=== PATIENT | female | born 1955 | race Caucasian/White ===

== ENCOUNTER 2023-01-20 19:55 | Inpatient (IN) ==
[2023-01-20] MEDS ORDERED: ceFAZolin 330 MG/ML 1 GM VIAL ONE (20:11)
[2023-01-20] MEDS ORDERED: BUPIVACAINE/EPINEPHRINE 0.25% 1:200,000 30 ML VIAL ONE (20:11)
[2023-01-20] MEDS ORDERED: PROMETHAZINE HCL 6.25 MG in SODIUM CHLORIDE 0.9% 50 ML IV PRN (20:13)
[2023-01-20] MEDS ORDERED: ATROPINE SULFATE 0.1 MG/ML 10ML SYR IV PRN (20:13)
[2023-01-20] MEDS ORDERED: HYDROmorphone INJ 2 MG/ML SYR/VIAL IV PRN (20:13)
[2023-01-20] MEDS ORDERED: ONDANSETRON INJ 2 MG/ML 2 ML VIAL IV PRN ×2 (20:13→22:56)
[2023-01-20] MEDS ORDERED: ePHEDrine sulfate 50 MG/ML AMP IV PRN (20:13)
[2023-01-20] MEDS ORDERED: fentaNYL citrate PF 100 MCG/2 ML VIAL ONE ×2 (20:16→21:45)
[2023-01-20] MEDS ORDERED: ONDANSETRON INJ 2 MG/ML 2 ML VIAL ONE ×2 (20:16→21:45)
[2023-01-20] MEDS ORDERED: SUGAMMADEX SODIUM 200 MG/2 ML VIAL IV ONE (20:16)
[2023-01-20] MEDS ORDERED: MIDAZOLAM HCL 1 MG/ML 2ML VIAL ONE (20:16)
[2023-01-20] MEDS ORDERED: DEXAMETHASONE SOD INJ 4 MG/ML VIAL ONE (20:16)
[2023-01-20] MEDS ORDERED: ROCURONIUM BROMIDE 10 MG/ML 5 ML VIAL IV ONE (20:16)
[2023-01-20] MEDS ORDERED: PROPOFOL IV EMULSION 10 MG/ML 20 ML VIAL IV ONE (20:16)
[2023-01-20] MEDS ORDERED: LIDOCAINE 2% 2 ML VIAL/AMP(20MG/ML) INFIL ONE (20:16)
[2023-01-20] MEDS ORDERED: SUCCINYLCHOLINE 100MG/5ML SYR IV ONE (20:16)
--- NOTE | 2023-01-20 20:29 | Anesthesiology Consultation ---
Date of Service January 20, 2023 Assessment & Plan (1) Encounter for pre-operative examination: Chart Review Chart Review: Acceptable Risk for Surgery and Patient NOT seen in Pre Admission Testing surgeon deems procedure emergency given loss of bladder function and sig pain. Consults Requested none History Surgery Operation Date: 01/20/23 21:00 Proposed Procedures p Incision and Drainage Lumbar - Brandon Berg DO Height/Weight Height: 5 ft 7 in Weight: 60.6 kg Allergies Allergy/AdvReac Type Severity Reaction Status Date / Time pregabalin [From Lyrica] Allergy headaches Verified 08/05/21 14:29 gabapentin AdvReac Unknown Verified 08/05/21 14:29 Medications Home Medications Medication Instructions Recorded Confirmed Last Taken CPAP Machine ea .Route 06/24/20 08/05/21 Unknown trazodone 100 mg tablet 100 mg PO HS 06/24/20 08/05/21 Unknown clonazepam 2 mg tablet 2 mg PO BID PRN 02/18/21 08/05/21 Unknown methimazole 10 mg tablet 15 mg PO DAILY 02/18/21 08/05/21 Unknown metoprolol tartrate 25 mg tablet 25 mg PO BID 02/18/21 08/05/21 Unknown Past Medical History Medical History (Updated 01/20/23 @ 20:29 by Paul Greene MD) Adjustment disorder with mixed emotional features Anxiety state Benign essential hypertension Encounter for pre-operative examination Hyperlipidemia Hyperthyroidism Moderate recurrent major depression Neuropathy Obstructive sleep apnea syndrome Pure hypercholesterolemia Tremor Past Family History Family History Mother Unknown family medical history Father Unknown family medical history Past Surgical History Surgical History S/P rotator cuff repair Social History Smoking Status: Current every day smoker Smoking cigarettes per day: 10 Physical Exam Vital Signs Last Vital Signs Temp 37.1 C 01/20/23 13:37 Pulse 66 01/20/23 13:37 Resp 18 01/20/23 13:37 BP 181/81 H 01/20/23 13:37 Pulse Ox 96 01/20/23 13:37 O2 Del Method Room Air 01/20/23 13:37 Testing Laboratory Results Laboratory Tests 07/27/23 07/27/23 07/27/23 15:17 15:17 15:17 WBC 7.68 Hgb 14.2 Hct 40.9 Plt Count 233 PT 10.2 INR 0.9 APTT 27.9 Sodium 139 Potassium 3.8 Chloride 105 Carbon Dioxide 30 BUN 14 Creatinine 0.74 Glucose 86
--- NOTE | 2023-01-20 20:37 | History & Physical Report ---
Date of Service January 20, 2023 Assessment & Plan (1) Injury of thoracic spinal cord: Plan: At this time I am recommending emergent evacuation of the thoracic hematoma and possible removal of the spinal cord stimulator. This was explained to the patient. All questions were addressed. Risks benefits pros cons and alternatives were outlined in detail. History of Present Illness Chief Complaint: Bilateral lower extremity weakness Primary Care Provider: Vic Herron PA-C This is a 67-year-old female status post spinal cord stimulator placement 2 days ago.. She was discharged home. States after getting home she had a few falls 1 directly on her back. She felt progressive weakness. She was being managed by her elderly aunt at that time. She notify our office this morning of her decline in status we request that she go to the emergency room immediately unfortunately she went to the [place] emergency room instead of the [place] emergency room. We did have her transferred over as soon as possible. This point she states she has thoracic back pain denies any lower extremity pain. She feels her sensation is markedly diminished lower extremities. Allergies Allergy/AdvReac Type Severity Reaction Status Date / Time pregabalin [From Lyrica] Allergy headaches Verified 08/05/21 14:29 gabapentin AdvReac Unknown Verified 08/05/21 14:29 Home Medications Medication Instructions Recorded Confirmed Type CPAP Machine ea .Route 06/24/20 08/05/21 History trazodone 100 mg tablet 100 mg PO HS 06/24/20 08/05/21 History clonazepam 2 mg tablet 2 mg PO BID PRN 02/18/21 08/05/21 History methimazole 10 mg tablet 15 mg PO DAILY 02/18/21 08/05/21 History metoprolol tartrate 25 mg tablet 25 mg PO BID 02/18/21 08/05/21 History Past Med/Surg History Medical History (Updated 01/20/23 @ 20:36 by Brandon Berg DO) Adjustment disorder with mixed emotional features Anxiety state Benign essential hypertension Encounter for pre-operative examination Hyperlipidemia Hyperthyroidism Moderate recurrent major depression Neuropathy Obstructive sleep apnea syndrome Pure hypercholesterolemia Tremor Surgical History S/P rotator cuff repair Family History Mother Unknown family medical history Father Unknown family medical history Social History Smoking Status: Current every day smoker packs per day: 0.5; Cigarettes Per Day: 10; Feels Safe at Home: Yes Physical Exam Physical Exam: On exam her upper extremities are working reasonably well with good strength and sensation. She is numb from the approximately umbilicus distally. She does appreciate pressure to lower extremities both thighs feet and calves. The incision dressings are in place with moderate swelling. There is some blood saturation on the dressings. She demonstrates no motor function to detailed testing lower extremities. Babinski is equivocal. Deep tendon reflexes absent. Results & Data Results & Data Vital Signs (Past 12 Hours) Vital Signs Temp Pulse Resp BP Pulse Ox O2 Del Method 01/20/23 13:37 37.1 C 66 18 181/81 H 96 Room Air
[2023-01-20] MEDS ORDERED: FLOSEAL HEMOSTATIC MATRIX 10ML TOP ONE (21:03)
--- NOTE | 2023-01-20 21:30 | Operative Report ---
Post Operative Report Pre & Post Diagnosis Operation Date: 01/20/23 21:00 Pre-op diagnosis Thoracic hematoma with neurodeficit Postop diagnosis Same I identified the patient and participated in the time-out.: Yes Procedure Operation Date: 01/20/23 21:00 #1 evacuation of thoracic hematoma. #2 revision laminotomy T10. #3 removal of a Nevro spinal cord stimulator paddle and battery. Surgeon Brandon Berg, DO Corporate Staff Accountant None Estimated Blood Loss 10 Findings Consistent with Post-Op Diagnosis Specimens None Indications This is a 67-year-old female approximately 48 hours status post spinal cord stimulator placement presents with marked decline in lower extremity function. Subsequently she is undergoing emergent exploration and evacuation of hematoma and removal of implant. Description of Procedure Patient was met with identified informed was obtained. Patient was then taken to the operative suite underwent the patient placed in a prone position check stable to posterior frame. Opening promises well-padded eyes inspected to ensure no external pressure responded. This point the spine is prepped draped no sterile fashion. Then immediately opened the thoracic incision from the previous laminotomy sites at T10 and T11. The paddle was quickly terrified. Evidence of significant hematoma within the canal was noted. It was underneath the paddle. I remove the paddle evacuated hematoma at the T10-11 laminotomy site however T10 I did extend the laminotomy proximally to address all evidence of blood within the canal. The dura appeared to be filled the canal appropriately after evacuation hematoma. Antibiotic solution was then irrigated. I then opened the battery pocket over the left flank and remove the bladder without difficulty. It was all also irrigated. A 15 round TORY drain was inserted at the thoracic level. The incision was then closed with 1 Vicryl to fascia 2-0 Vicryl subcutaneously and 4 Monocryl for fascial closure. Steri- Strips and sterile dressing placed. Patient waken taken to PACU in stable condition. I attest to the content of the Intraoperative Record and any orders documented therein. Any exceptions are noted below.
[2023-01-20] MEDS ORDERED: ceFAZolin 2000MG 2,000 MG/15 ML SYR IV ONE (21:40)
[2023-01-20] MEDS: fentaNYL citrate PF 100 MCG/2 ML VIAL IV PRN ×4 (21:48→22:14)
--- NOTE | 2023-01-20 22:07 | Anesthesiology Progress Note ---
Date of Service January 20, 2023 Anesthesia Post Procedure Vital Signs Vital Signs: Temp Pulse Pulse Resp BP BP Pulse Ox 01/20/23 21:55 86 20 151/65 H 96 01/20/23 21:45 91 H 16 146/72 H 100 01/20/23 21:39 36 C L 89 17 122/84 100 01/20/23 13:37 37.1 C 66 18 181/81 H 96 O2 Del Method O2 Flow Rate 01/20/23 21:55 Room Air 01/20/23 21:45 Oxymask 6 01/20/23 21:39 Oxymask 6 01/20/23 13:37 Room Air Pain Intensity Lower Back: Pain Intensity: 7 Transfer of Care Handoff Completed per policy Notes Mental Status: alert / awake / arousable and participated in evaluation Patient Amnestic to Procedure: Yes Nausea / Vomiting: adequately controlled Pain: adequately controlled Airway Patency, RR, SpO2: stable & adequate BP & HR: stable & adequate Hydration State: stable & adequate Anesthetic Complications: no major complications apparent and Pt Satisfied with anesthetic care
[2023-01-20] MEDS ORDERED: ONDANSETRON 4 MG OD TAB PO PRN (22:56)
[2023-01-20] MEDS ORDERED: NALOXONE HCL 0.4 MG/1 ML VIAL/CARP IV PRN (22:56)
[2023-01-20] MEDS ORDERED: METOCLOPRAMIDE HCL INJ 5 MG/ML 2 ML VIAL IV PRN (22:56)
[2023-01-20] MEDS ORDERED: FAMOTIDINE 20 MG TAB PO PRN (22:56)
[2023-01-20] MEDS ORDERED: PROMETHAZINE HCL 12.5 MG in SODIUM CHLORIDE 0.9% 50 ML IV PRN (22:56)
[2023-01-20] MEDS ORDERED: bisacodyL 10 MG SUPP PR PRN (22:56)
[2023-01-20] MEDS ORDERED: ALUMINUM/MAGNESIUM SUSP 30 ML UDC PO PRN (22:56)
[2023-01-20] MEDS ORDERED: clonazePAM 1 MG TAB PO PRN (22:56)
[2023-01-20] MEDS ORDERED: SOD PHOSPHATE/SOD BIPHOSPHATE ENEMA 132 ML BTL PR PRN (22:56)
[2023-01-20] MEDS ORDERED: DO NOT ADMINISTER FLU VACCINE PRN (22:56)
[2023-01-20] MEDS ORDERED: diphenhydrAMINE Capsule 25 MG CAP PO PRN (22:56)
[2023-01-20] MEDS ORDERED: LACTATED RINGER'S 1,000 ML IV SCH (22:56)
[2023-01-20] MEDS ORDERED: hydrOXYzine HCl 25 MG TAB PO PRN (22:56)
[2023-01-20] MEDS ORDERED: LORazepam 0.5 MG TAB PO PRN (22:56)
[2023-01-20] MEDS ORDERED: DO NOT ADMINISTER PNEUMOCOCCAL VACCINE PRN (22:56)
[2023-01-20] MEDS ORDERED: ACETAMINOPHEN 1,000 MG/100 ML VIAL IV PRN (22:56)
[2023-01-20] MEDS ORDERED: LORazepam 2 MG/1 ML VIAL IV PRN (22:56)
[2023-01-20] MEDS: dexAMETHasone 8 MG in SYRINGE 0 ML IV SCH (23:18)
--- NOTE | 2023-01-20 23:47 | Hospitalist Consultation ---
Date of Consultation January 20, 2023 Assessment & Plan (1) Injury of thoracic spinal cord: Final Assessment and Recommendations as follows : Thoracic spine hematoma Recent outpatient spinal cord stimulator placement for chronic back pain (01/18) Status post evacuation/stimulator removal Patient still with discomfort. GERD like discomfort hypertension, stable Hyperthyroidism on methimazole Rx chronic tremors/neuropathy as per records ongoing tobacco abuse. Postop management/analgesia as per orthopedics. Famotidine 1 dose now for GERD Nicotine replacement therapy as needed DVT prophylaxis. SCDs as per postop orders Thank you very much for this consultation. Dr. Koch will follow patient's progress. Text document was generated using [employer] voice recognition software. It may contain grammatical or spelling errors. Kindly contact undersigned for clarification of any documentation item in question. History of Present Illness Reason for Consultation: Medical management Requesting Physician: Dr. Berg Attending Physician: Brandon Berg DO History of Present Illness PCP : Vic Herron PA-C History obtained from patient and records. Medical history significant for hypertension, chronic back pain, chronic tremors, neuropathy, hyperthyroidism, ongoing tobacco abuse. Patient underwent outpatient spinal cord stimul[place] [facility] [place] 2 [place] ago for chronic back pain. Worsening postprocedure back discomfort without unusual weakness complaints. No chest pain, no SOB, no headache symptoms. Surgeon advised patient to go to [facility] ER for evaluation. Concern for thoracic hematoma with neurologic deficit. Patient subsequently underwent emergent exploration and evacuation thoracic hematoma, revision laminotomy, and removal of spinal cord stimulator. Patient currently at [facility]. Back pain still uncontrolled. Complaining of chest pain like reflux. Denies SOB. 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 Allergies Allergy/AdvReac Type Severity Reaction Status Date / Time pregabalin [From Lyrica] Allergy headaches Verified 08/05/21 14:29 gabapentin AdvReac Unknown Verified 08/05/21 14:29 Home Medications Medication Instructions Recorded Confirmed Type CPAP Machine ea .Route 06/24/20 08/05/21 History trazodone 100 mg tablet 100 mg PO HS 06/24/20 08/05/21 History clonazepam 2 mg tablet 2 mg PO BID PRN 02/18/21 08/05/21 History methimazole 10 mg tablet 15 mg PO DAILY 02/18/21 08/05/21 History metoprolol tartrate 25 mg tablet 25 mg PO BID 02/18/21 08/05/21 History Patient History Medical History Adjustment disorder with mixed emotional features Anxiety state Benign essential hypertension Encounter for pre-operative examination Hyperlipidemia Hyperthyroidism Moderate recurrent major depression Neuropathy Obstructive sleep apnea syndrome Pure hypercholesterolemia Tremor Surgical History S/P rotator cuff repair Family History Mother Unknown family medical history Father Unknown family medical history Social History Smoking Status: Current every day smoker Tobacco Type: Cigarettes packs per day: 0.5; Cigarettes Per Day: 10; Second Hand Exposure: No; Do You Dip or Chew Tobacco: No; Tobacco Cessation Education Requested by Patient: No Hx Alcohol Use: No Hx Substance Use: No Preferred Language: Luxembourgish Communication Ability: Effective Hydraulic Press In Operator Required: No Beliefs That Will Affect Care: None Current Living Situation: Alone Other Information That Helps Us Care for You: No Feels Safe at Home: Yes Safety Concerns: Feels Safe At This Time Assistive Devices: Denture - Upper and Glasses Review of Systems Review of Systems: As per HPI, all other systems reviewed and negative Physical Exam Physical Exam: GENERAL: uncomfortable, irate, no respiratory distress SKIN: Pallor, warm HEENT: Pale palpebral conjunctivae, no ptosis, dry buccal mucosa NECK : Supple, no tenderness CHEST : Decreased breath sounds, no tenderness HEART : RRR, no obvious murmurs ABDOMEN: Some distention, nontender EXTREMITIES : Minimal LE swelling, no LE tenderness, no other conspicuous deformities noted NEUROLOGIC : Coherent, no facial asymmetry, no other gross focality Results & Data Results & Data Vital Signs (Past 12 Hours) Vital Signs Temp Pulse Pulse Resp BP BP Pulse Ox 01/20/23 22:35 79 22 130/60 93 01/20/23 22:25 65 20 155/53 H 98 01/20/23 22:15 36.3 C L 73 19 147/61 H 98 01/20/23 22:05 85 20 114/73 100 01/20/23 21:55 86 20 151/65 H 96 01/20/23 21:45 91 H 16 146/72 H 100 01/20/23 21:39 36 C L 89 17 122/84 100 01/20/23 13:37 37.1 C 66 18 181/81 H 96 O2 Del Method O2 Flow Rate 01/20/23 22:35 Room Air 01/20/23 22:25 Room Air 01/20/23 22:15 Room Air 01/20/23 22:05 Room Air 01/20/23 21:55 Room Air 01/20/23 21:45 Oxymask 6 01/20/23 21:39 Oxymask 6 01/20/23 13:37 Room Air
[2023-01-20] MEDS: HYDROmorphone INJ 1 MG/ML SYRINGE IV PRN (23:57)
[2023-01-21] MEDS ORDERED: LACTATED RINGER'S 1,000 ML IV ONE (02:00)
[2023-01-21] MEDS ORDERED: FAMOTIDINE 20 MG in SYRINGE 3 ML IV ONE (02:00)
[2023-01-21] MEDS: ceFAZolin 1000MG 1,000 MG/7.5 ML SYR IV SCH ×2 (05:24→11:26)
[2023-01-21] MEDS: POLYETHYLENE (MIRALAX) 17 GM PACK PO SCH ×3 (05:31→17:04)
[2023-01-21] MEDS: HYDROmorphone INJ 0.5 MG/0.5 ML SYR IV PRN ×2 (06:39→17:53)
[2023-01-21 07:22] LABS: Hematocrit (blood only) 32.9 % (37.0-47.0); Hemoglobin 11.4 g/dl (12.0-16.0); Mean Corpuscular Hemoglobin 32.9 pg (25.0-34.0); Mean Corpuscular Hgb Conc 34.7 g/dL (32.0-36.0); Mean Corpuscular Volume 95.1 fL (80.0-100.0); Mean Platelet Volume 9.7 fL (9.4-12.4); Platelet Count 185 K/uL (130-400); RDW Coefficient of Variation 12.6 % (11.5-14.5); Red Blood Count 3.46 M/uL (4.20-5.40)
[2023-01-21 07:52] LABS: Basophils # (auto) 0.01 K/uL (0.00-0.20); Basophils % (auto) 0.2 %; Immature Granulocytes # (auto) 0.03 K/uL (0.01-0.20); Immature Granulocytes % (auto) 0.5 %; Lymphocytes # (auto) 0.43 K/uL (1.20-3.40); Lymphocytes % (auto) 6.5 %; Monocytes # (auto) 0.09 K/uL (0.11-0.59); Monocytes % (auto) 1.4 %; Neutrophils # (auto) 6.04 K/uL (1.40-6.50); Neutrophils % (auto) 91.4 %
[2023-01-21 08:07] LABS: BUN Creatinine Ratio 16.2 (10-20); Calcium 9.3 mg/dl (8.6-10.3); Creatinine Clr Calc Pharmacy 74.7 ml/min; Est GFR (African American) 106.4 ml/min; Est GFR (Non-African American) 91.8 ml/min; Potassium 3.8 mmol/L (3.5-5.1)
[2023-01-21] MEDS: dexAMETHasone 8 MG in SYRINGE 0 ML IV SCH ×2 (08:16→15:21)
[2023-01-21] MEDS: METOPROLOL TARTRATE 25 MG TAB PO SCH ×2 (08:17→21:08)
[2023-01-21] MEDS: methIMAzole 5 MG TABLET PO SCH (08:17)
[2023-01-21] MEDS: oxyCODONE HCL IR 5 MG TAB (IMMEDIATE RELEASE) PO PRN ×2 (08:23→14:51)
--- NOTE | 2023-01-21 10:15 | Fluoroscopy Report ---
FL lumbar spine 2-3V CLINICAL HISTORY: EVAC HEMATOMA AND REMOVAL OF SPINAL CORD STIMULATOR COMPARISON STUDY: PET/CT March 16, 2022. FLUOROSCOPY TIME: 2 seconds. Ka, r: 0.46 mGy FLUOROSCOPIC IMAGES: 2 FINDINGS: Fluoroscopy was provided during removal of a spinal cord stimulator. The stimulator is note d on these 2 fluoroscopic images. IMPRESSION: Fluoroscopy provided during removal of a spinal cord stimulator. ACT 112: Negative or not required by law. Electronically signed by: Bladimir Deluca M.D. 01/21/2023 10:14 AM
--- NOTE | 2023-01-21 10:48 | Orthopedic Progress Note ---
Date of Service January 21, 2023 Assessment & Plan (1) Injury of thoracic spinal cord: Plan: Assessment status postevacuation hematoma. Plan at this time I will initiate physical therapy for lower extremity motion and strengthening. We will continue our on steroids. Initiate transitions to chair tomorrow if possible. Admission and Anticipated Discharge Date Admission Date: January 20, 2023 Subjective Patient's pain is controlled. She is noting some improvement in sensation particularly to the right lower extremity or the left. Physical Exam Physical Exam: On exam she does appear to have increased sensation to the right lower extremity. She does have some evidence of plantarflexion dorsiflexion extensor hallucis longus initiated on the right lower none on the left. Results & Data Vital Signs (Past 12 Hours) Vital Signs Temp Pulse Resp BP Pulse Ox O2 Del Method 01/21/23 06:07 36.8 C 73 18 125/57 L 98 Room Air 01/21/23 01:43 36.3 C L 81 18 116/66 96 Room Air 01/20/23 23:45 36.2 C L 62 18 160/66 H 100 Room Air 01/20/23 23:15 36.5 C 80 18 129/60 97 Room Air 01/21/23 00:45 36.4 C L 84 18 127/64 96 Room Air
[2023-01-21] MEDS: HYDROmorphone INJ 1 MG/ML SYRINGE IV PRN (11:26)
--- NOTE | 2023-01-21 14:28 | Hospitalist Progress Note ---
Date of Service January 21, 2023 Assessment & Plan (1) Injury of thoracic spinal cord: Plan: 67-year-old lady with PMH of HTN, chronic back pain, chronic tremors, neuropathy, hypothyroidism, ongoing tobacco abuse who recently had outpatient spinal cord stimulator placement 2 days ago [employer] presented to the ED 01/20 with worsening postprocedure lower back discomfort associated with BLE weakness/sensation changes. She is being managed for the following: Thoracic spine hematoma Recent outpatient spinal cord stimulator placement for chronic back pain (01/18) Status post evacuation/stimulator removal 01/20 Acute blood loss anemia: Likely secondary to recent operative interventions Patient is a status post #1 evacuation of thoracic hematoma. #2 revision laminotomy T10. #3 removal of a Nevro spinal cord stimulator paddle and battery. by Dr. Berg Postop management/analgesia as per orthopedics. PT/OT, DVT prophylaxis per primary team. Indigestion/upper belly discomfort: Famotidine. Other chronic medical conditions: Continue with/resume home meds as and when able. hypertension, stable Hyperthyroidism on methimazole Rx chronic tremors/neuropathy as per records ongoing tobacco abuse. Counseled. Nicotine patch as needed. DVT prophylaxis. SCDs as per postop orders Full code Admission and Anticipated Discharge Date Admission Date: January 20, 2023 Subjective Patient seen and examined at bedside as a follow-up of medical management for Evacuation of Thoracic Hematoma, Removal of spinal stimulator Patient was lying in bed, NAD, visibly sad, reports some motor and sensory improvement in her RLE compared to LLE, reports eating "so-so ", she reports being upset with her inability to use her lower limbs, started crying at one point, provided consolation, left the patient in room in emotionally stable state. Physical Exam Physical Exam: GENERAL: Alert and oriented x3. NAD, on RA. sad/weak. HEENT: No pallor, no icterus. Pupils equal, round and reactive to light. Oral mucosa moist. NECK: No JVD, no neck masses. HEART: S1 and S2 heard. Regular rate and rhythm. No murmur, no gallop. RESPIRATORY SYSTEM: Normal AP diameter. No accessory muscle use. No wheezing, no crackles. ABDOMEN: Soft, bowel sounds present, nontender, no distention. CENTRAL NERVOUS SYSTEM: No facial droop. Speech is clear. Obeys simple commands. Moves extremities. EXTREMITIES: No edema, decreased sensation BLE - RLE sesation better than LLE; Decreased motor strength 0/5 BLE - RLE can wiggle the toes Results & Data Results & Data Vital Signs (Past 12 Hours) Vital Signs Temp Pulse Resp BP Pulse Ox O2 Del Method 01/21/23 11:19 37.2 C 65 16 153/65 H 97 Room Air 01/21/23 06:07 36.8 C 73 18 125/57 L 98 Room Air
[2023-01-21] MEDS ORDERED: traZODone HCL 100 MG TAB PO SCH (21:00)
[2023-01-21] MEDS: DOCUSATE SODIUM/SENNA 50/8.6MG TAB PO SCH (21:08)
--- NOTE | 2023-01-21 23:28 | Communication Note ---
Date of Service: January 21, 2023 Patient noted to have mild confusion as per RN. Hold parameters for neuropsychotropic, muscle relaxants, and opioid medications for sedation and confusion.
[2023-01-21] MEDS ORDERED: NSS + 20MEQ KCL 20 MEQ/1,000 ML BAG IV ONE (23:45)
[2023-01-22] MEDS: dexAMETHasone 8 MG in SYRINGE 0 ML IV SCH ×4 (00:06→23:09)
[2023-01-22] MEDS: POLYETHYLENE (MIRALAX) 17 GM PACK PO SCH ×5 (00:06→23:09)
[2023-01-22 02:28] LABS: Appearance Urine Clear (Clear); Bacteria Urine Automated Negative (Negative); Bilirubin Urine Negative (Negative); Blood Urine 1+ (Negative); Cast Urine Automated 0 /lpf (0-5); Color Urine Yellow; Epithelial Cell Urine Auto 0-5 /lpf (0-5); Glucose Urine UA Negative (Negative); Ketones Urine Negative (Negative); Leukocyte Esterase Urine Negative (Negative); Nitrite Urine Negative (Negative); Protein Urine Negative (Negative); Specific Gravity Urine 1.013 (1.000-1.030); Urobilinogen Urine Negative (Negative)
[2023-01-22 06:10] LABS: Hematocrit (blood only) 33.4 % (37.0-47.0); Hemoglobin 11.7 g/dl (12.0-16.0); Mean Corpuscular Hemoglobin 32.5 pg (25.0-34.0); Mean Corpuscular Volume 92.8 fL (80.0-100.0); Mean Platelet Volume 9.9 fL (9.4-12.4); Platelet Count 224 K/uL (130-400); RDW Coefficient of Variation 12.6 % (11.5-14.5); RDW Standard Deviation 42.8 fL (36.4-46.3); White Blood Count 13.03 K/ul (4.8-10.8)
[2023-01-22 06:28] LABS: BUN Creatinine Ratio 35.2 (10-20); Calcium 9.1 mg/dl (8.6-10.3); Creatinine Clr Calc Pharmacy 94.1 ml/min; Est GFR (African American) 114.8 ml/min; Phosphorus 3.3 mg/dl (2.5-4.9)
[2023-01-22] MEDS ORDERED: OLANZapine 10 MG/2.1 ML SDV IM PRN (06:35)
[2023-01-22] MEDS: methIMAzole 5 MG TABLET PO SCH (07:35)
[2023-01-22] MEDS: METOPROLOL TARTRATE 25 MG TAB PO SCH ×2 (07:35→19:26)
[2023-01-22] MEDS: BACLOFEN 10 MG TAB PO PRN (07:35)
[2023-01-22 07:46] LABS: Estimated Average Glucose 105 mg/dl; Hemoglobin A1C 5.3 % (4.5-5.6)
--- NOTE | 2023-01-22 09:47 | Orthopedic Progress Note ---
Date of Service January 22, 2023 Assessment & Plan (1) Injury of thoracic spinal cord: Plan: At this time we will continue with physical therapy. I like to begin transfers to a chair with assistance. We will be moving towards rehab placement next week. Admission and Anticipated Discharge Date Admission Date: January 20, 2023 Subjective Patient's back pain is improved. She is noting improvement of her sensation into the abdomen and bilateral lower extremities. Still significant bilateral lower extremity weakness. She is very anxious to return home. Physical Exam Physical Exam: On exam she does exhibit sensation from the umbilicus distally into the bilateral extremities to cold and light touch. She is demonstrating some modest quad activation on the right plantarflexion dorsiflexion on the right. Left I am still unable to appreciate any motor function. Results & Data Vital Signs (Past 12 Hours) Vital Signs Temp Pulse Resp BP Pulse Ox O2 Del Method 01/22/23 06:59 36.7 C 60 16 159/73 H 98 Room Air
--- NOTE | 2023-01-22 15:30 | Hospitalist Progress Note ---
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 She is being managed for the following: Thoracic spine hematoma Recent outpatient spinal cord stimulator placement for chronic back pain (01/18) Status post evacuation/stimulator removal 01/20 Acute blood loss anemia: Likely secondary to recent operative interventions Patient is a status post #1 evacuation of thoracic hematoma. #2 revision laminotomy T10. #3 removal of a Nevro spinal cord stimulator paddle and battery. by Dr. Berg Postop management/analgesia as per orthopedics. PT/OT, DVT prophylaxis per primary team. Indigestion/upper belly discomfort: Famotidine. Other chronic medical conditions: Continue with/resume home meds as and when able. hypertension, stable Hyperthyroidism on methimazole Rx chronic tremors/neuropathy as per records ongoing tobacco abuse. Counseled. Nicotine patch as needed. DVT prophylaxis. SCDs as per postop orders Full code Admission and Anticipated Discharge Date Admission Date: January 20, 2023 Subjective Patient seen and examined at bedside as a follow-up of medical management for Evacuation of Thoracic Hematoma, Removal of spinal stimulator Patient was lying in bed, NAD, reports gradual motor and sensory improvement in her RLE compared to LLE, reports eating ok, reports feeling at her baseline. Physical Exam Physical Exam: GENERAL: Alert and oriented x3. NAD, on RA. sad/weak. HEENT: No pallor, no icterus. Pupils equal, round and reactive to light. Oral mucosa moist. NECK: No JVD, no neck masses. HEART: S1 and S2 heard. Regular rate and rhythm. No murmur, no gallop. RESPIRATORY SYSTEM: Normal AP diameter. No accessory muscle use. No wheezing, no crackles. ABDOMEN: Soft, bowel sounds present, nontender, no distention. CENTRAL NERVOUS SYSTEM: No facial droop. Speech is clear. Obeys simple commands. Moves extremities. EXTREMITIES: No edema, decreased sensation BLE - RLE sesation better than LLE; Decreased motor strength 0/5 BLE - RLE can wiggle the toes low back w/ clean dressing w/o soakage. Results & Data Results & Data Vital Signs (Past 12 Hours) Vital Signs Temp Pulse Resp BP Pulse Ox O2 Del Method 01/22/23 14:55 37.3 C 65 18 117/68 99 Room Air 01/22/23 06:59 36.7 C 60 16 159/73 H 98 Room Air
[2023-01-22] MEDS: ACETAMINOPHEN 500 MG TAB PO PRN (19:26)
[2023-01-22] MEDS: DOCUSATE SODIUM/SENNA 50/8.6MG TAB PO SCH (19:27)
[2023-01-23] MEDS: oxyCODONE HCL IR 5 MG TAB (IMMEDIATE RELEASE) PO PRN ×4 (00:32→14:59)
[2023-01-23] MEDS: POLYETHYLENE (MIRALAX) 17 GM PACK PO SCH ×4 (05:33→23:25)
[2023-01-23] MEDS: ACETAMINOPHEN 500 MG TAB PO PRN ×2 (05:33→19:35)
[2023-01-23 06:32] LABS: Hematocrit (blood only) 35.2 % (37.0-47.0); Hemoglobin 12.4 g/dl (12.0-16.0); Mean Corpuscular Hemoglobin 32.9 pg (25.0-34.0); Mean Corpuscular Hgb Conc 35.2 g/dL (32.0-36.0); Mean Corpuscular Volume 93.4 fL (80.0-100.0); Mean Platelet Volume 9.8 fL (9.4-12.4); Platelet Count 247 K/uL (130-400); RDW Coefficient of Variation 12.5 % (11.5-14.5); RDW Standard Deviation 42.9 fL (36.4-46.3); Red Blood Count 3.77 M/uL (4.20-5.40); White Blood Count 12.32 K/ul (4.8-10.8)
[2023-01-23 07:00] LABS: BUN Creatinine Ratio 44.2 (10-20); Creatinine Clr Calc Pharmacy 97.7 ml/min; Est GFR (African American) 116.2 ml/min; Est GFR (Non-African American) 100.3 ml/min; Potassium 3.9 mmol/L (3.5-5.1)
[2023-01-23] MEDS: METOPROLOL TARTRATE 25 MG TAB PO SCH ×2 (07:56→19:38)
[2023-01-23] MEDS: methIMAzole 5 MG TABLET PO SCH (07:57)
[2023-01-23] MEDS: dexAMETHasone 8 MG in SYRINGE 0 ML IV SCH ×3 (08:07→23:25)
--- NOTE | 2023-01-23 09:04 | Orthopedic Progress Note ---
Date of Service January 23, 2023 Assessment & Plan (1) Injury of thoracic spinal cord: Plan: At this time we will continue with therapy and hopefully transfers to a chair she gets stronger. Plan for rehab later this week. Admission and Anticipated Discharge Date Admission Date: January 20, 2023 Subjective Patient's back pain is controlled. Again sensation improved. Physical Exam Physical Exam: On exam she sampled bed. She is comfortable. She is exhibiting modest increase in hip flexion and quadriceps on the right. Plantarflexion dorsiflexion present but still markedly weak. Sensory is intact to cold and light touch to the bilateral lower extremities. Results & Data Vital Signs (Past 12 Hours) Vital Signs Temp Pulse Resp BP Pulse Ox O2 Del Method 01/23/23 08:26 36.5 C 72 16 137/64 96 Room Air
[2023-01-23] MEDS: LEVOTHYROXINE SODIUM 112 MCG TABLET PO SCH (10:22)
[2023-01-23] MEDS: VENLAFAXINE HCL 37.5 MG TAB PO SCH (10:22)
[2023-01-23] MEDS: traMADol HCL 50 MG TABLET PO PRN ×2 (12:02→18:32)
[2023-01-23] MEDS: clonazePAM 1 MG TAB PO PRN (14:08)
--- NOTE | 2023-01-23 15:25 | Hospitalist Progress Note ---
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 She is being managed for the following: Thoracic spine hematoma Recent outpatient spinal cord stimulator placement for chronic back pain (01/18) Status post evacuation/stimulator removal 01/20 Acute blood loss anemia: Likely secondary to recent operative interventions Patient is a status post #1 evacuation of thoracic hematoma. #2 revision laminotomy T10. #3 removal of a Nevro spinal cord stimulator paddle and battery. by Dr. Berg Postop management/analgesia as per orthopedics. PT/OT, DVT prophylaxis per primary team. Indigestion/upper belly discomfort: Famotidine. Other chronic medical conditions: Continue with/resume home meds as and when able. hypertension, stable Hyperthyroidism on methimazole Rx - pt states she is done w/ tapazole, currently is on synthroid. Resumed her home dose of synthroid. chronic tremors/neuropathy as per records ongoing tobacco abuse. Counseled. Nicotine patch as needed. DVT prophylaxis. SCDs as per postop orders Full code Admission and Anticipated Discharge Date Admission Date: January 20, 2023 Subjective Patient seen and examined at bedside as a follow-up of medical management for Evacuation of Thoracic Hematoma, Removal of spinal stimulator Patient was lying in bed, NAD, reports gradual motor and sensory improvement in her RLE compared to LLE, reports eating ok, reports improving back pain. Physical Exam Physical Exam: GENERAL: Alert and oriented x3. NAD, on RA. appears weak. HEENT: No pallor, no icterus. Pupils equal, round and reactive to light. Oral mucosa moist. NECK: No JVD, no neck masses. HEART: S1 and S2 heard. Regular rate and rhythm. No murmur, no gallop. RESPIRATORY SYSTEM: Normal AP diameter. No accessory muscle use. No wheezing, no crackles. ABDOMEN: Soft, bowel sounds present, nontender, no distention. CENTRAL NERVOUS SYSTEM: No facial droop. Speech is clear. Obeys simple commands. Moves extremities. EXTREMITIES: No edema, decreased sensation BLE - RLE sesation better than LLE; Decreased motor strength 0/5 BLE - RLE can wiggle the toes low back w/ clean dressing w/o soakage. Results & Data Results & Data Vital Signs (Past 12 Hours) Vital Signs Temp Pulse Resp BP Pulse Ox O2 Del Method 01/23/23 15:03 36.7 C 61 16 163/63 H 95 Room Air 01/23/23 08:26 36.5 C 72 16 137/64 96 Room Air
[2023-01-23] MEDS: DOCUSATE SODIUM/SENNA 50/8.6MG TAB PO SCH (19:38)
[2023-01-23] MEDS: HYDROmorphone INJ 1 MG/ML SYRINGE IV PRN (23:25)
[2023-01-24] MEDS: traMADol HCL 50 MG TABLET PO PRN ×4 (02:55→22:23)
[2023-01-24] MEDS: LEVOTHYROXINE SODIUM 112 MCG TABLET PO SCH (05:32)
[2023-01-24] MEDS: POLYETHYLENE (MIRALAX) 17 GM PACK PO SCH ×4 (05:32→23:16)
[2023-01-24 06:21] LABS: Hematocrit (blood only) 37.9 % (37.0-47.0); Hemoglobin 13.2 g/dl (12.0-16.0); Mean Corpuscular Hemoglobin 32.4 pg (25.0-34.0); Mean Corpuscular Hgb Conc 34.8 g/dL (32.0-36.0); Mean Corpuscular Volume 92.9 fL (80.0-100.0); Mean Platelet Volume 9.9 fL (9.4-12.4); Platelet Count 293 K/uL (130-400); RDW Coefficient of Variation 12.4 % (11.5-14.5); RDW Standard Deviation 42.5 fL (36.4-46.3); Red Blood Count 4.08 M/uL (4.20-5.40); White Blood Count 13.21 K/ul (4.8-10.8)
[2023-01-24 06:33] LABS: BUN Creatinine Ratio 50.9 (10-20); Calcium 8.9 mg/dl (8.6-10.3); Creatinine Clr Calc Pharmacy 95.9 ml/min; Est GFR (African American) 115.5 ml/min; Est GFR (Non-African American) 99.6 ml/min; Potassium 4.1 mmol/L (3.5-5.1)
[2023-01-24] MEDS: ACETAMINOPHEN 500 MG TAB PO PRN ×2 (07:22→15:43)
[2023-01-24] MEDS: clonazePAM 1 MG TAB PO PRN ×2 (08:00→20:21)
[2023-01-24] MEDS: VENLAFAXINE HCL 37.5 MG TAB PO SCH (08:52)
[2023-01-24] MEDS: METOPROLOL TARTRATE 25 MG TAB PO SCH ×2 (08:53→19:26)
[2023-01-24] MEDS: dexAMETHasone 8 MG in SYRINGE 0 ML IV SCH ×2 (09:24→19:27)
--- NOTE | 2023-01-24 10:21 | Orthopedic Progress Note ---
Date of Service January 24, 2023 Assessment & Plan (1) Injury of thoracic spinal cord: Plan: At this time we are planning on rehab. She is unfortunately not able to appreciate the necessity of this decision. We will continue to work with her in hopes that she will understand the purpose. She be able for discharge when a bed available. Admission and Anticipated Discharge Date Admission Date: January 20, 2023 Subjective Patient's pain is controlled. She is very anxious about rehab and having to stay overnight. She continues to note her sensory is intact to the lower extremities. But no motor function to the left lower extremity. Physical Exam Physical Exam: On exam sensory is intact to light touch and cold bilateral extremities and abdomen. She is continuing to demonstrate plantarflexion and hip flexion on the right with very modest improvement. Left lower extremity still unable to appreciate any motor function. Results & Data Vital Signs (Past 12 Hours) Vital Signs Temp Pulse Resp BP Pulse Ox O2 Del Method 01/24/23 08:52 65 155/77 H 01/24/23 08:17 36.8 C 72 20 155/72 H 96 Room Air
[2023-01-24] MEDS: MAGNESIUM HYDROXIDE SUSP 30 ML UDC PO PRN (11:58)
[2023-01-24] MEDS: oxyCODONE HCL IR 5 MG TAB (IMMEDIATE RELEASE) PO PRN ×2 (13:25→18:58)
--- NOTE | 2023-01-24 14:13 | Hospitalist Progress Note ---
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 She is being managed for the following: Thoracic spine hematoma Recent outpatient spinal cord stimulator placement for chronic back pain (01/18) Status post evacuation/stimulator removal 01/20 Acute blood loss anemia: Likely secondary to recent operative interventions Patient is a status post #1 evacuation of thoracic hematoma. #2 revision laminotomy T10. #3 removal of a Nevro spinal cord stimulator paddle and battery. by Dr. Berg Postop management/analgesia as per orthopedics. PT/OT, DVT prophylaxis per primary team. Pt will benefit from transitioning to rehab. Indigestion/upper belly discomfort: Famotidine. Other chronic medical conditions: Continue with/resume home meds as and when able. hypertension, stable Hyperthyroidism on methimazole Rx - pt states she is done w/ tapazole, currently is on synthroid. Resumed her home dose of synthroid. c/w levothyroxine. chronic tremors/neuropathy as per records ongoing tobacco abuse. Counseled. Nicotine patch as needed. DVT prophylaxis. SCDs as per postop orders Full code Admission and Anticipated Discharge Date Admission Date: January 20, 2023 Subjective Patient seen and examined at bedside as a follow-up of medical management for Evacuation of Thoracic Hematoma, Removal of spinal stimulator Patient was lying in bed, NAD, reports gradual motor and sensory improvement in her RLE compared to LLE, reports eating ok, reports improving back pain. Need for rehab reinforced for continued PT/OT. Pt unwilling/confused about need for it, will continue to educate her the need for rehab. Physical Exam Physical Exam: GENERAL: Alert and oriented x3. NAD, on RA. appears weak. HEENT: No pallor, no icterus. Pupils equal, round and reactive to light. Oral mucosa moist. NECK: No JVD, no neck masses. HEART: S1 and S2 heard. Regular rate and rhythm. No murmur, no gallop. RESPIRATORY SYSTEM: Normal AP diameter. No accessory muscle use. No wheezing, no crackles. ABDOMEN: Soft, bowel sounds present, nontender, no distention. CENTRAL NERVOUS SYSTEM: No facial droop. Speech is clear. Obeys simple commands. Moves extremities. EXTREMITIES: No edema, decreased sensation BLE - RLE sesation better than LLE; Decreased motor strength RLE 1/5; LLE 0/5 low back w/ clean dressing w/o soakage. Results & Data Results & Data Vital Signs (Past 12 Hours) Vital Signs Temp Pulse Resp BP Pulse Ox O2 Del Method 01/24/23 08:52 65 155/77 H 01/24/23 08:17 36.8 C 72 20 155/72 H 96 Room Air
[2023-01-24] MEDS: DOCUSATE SODIUM/SENNA 50/8.6MG TAB PO SCH (19:26)
[2023-01-25] MEDS: oxyCODONE HCL IR 5 MG TAB (IMMEDIATE RELEASE) PO PRN ×2 (02:07→19:50)
[2023-01-25] MEDS: ACETAMINOPHEN 500 MG TAB PO PRN ×3 (04:26→18:42)
[2023-01-25] MEDS: LEVOTHYROXINE SODIUM 112 MCG TABLET PO SCH (05:30)
[2023-01-25] MEDS: POLYETHYLENE (MIRALAX) 17 GM PACK PO SCH ×4 (05:30→23:03)
[2023-01-25 06:38] LABS: Hematocrit (blood only) 37.9 % (37.0-47.0); Hemoglobin 13.2 g/dl (12.0-16.0); Mean Corpuscular Hemoglobin 32.7 pg (25.0-34.0); Mean Corpuscular Hgb Conc 34.8 g/dL (32.0-36.0); Mean Corpuscular Volume 93.8 fL (80.0-100.0); Mean Platelet Volume 9.8 fL (9.4-12.4); Platelet Count 331 K/uL (130-400); RDW Coefficient of Variation 12.4 % (11.5-14.5); RDW Standard Deviation 42.8 fL (36.4-46.3); Red Blood Count 4.04 M/uL (4.20-5.40); White Blood Count 14.69 K/ul (4.8-10.8)
[2023-01-25] MEDS: traMADol HCL 50 MG TABLET PO PRN ×2 (07:29→12:45)
[2023-01-25] MEDS: VENLAFAXINE HCL 37.5 MG TAB PO SCH (08:23)
[2023-01-25] MEDS: METOPROLOL TARTRATE 25 MG TAB PO SCH ×2 (08:23→19:50)
[2023-01-25] MEDS: dexAMETHasone 8 MG in SYRINGE 0 ML IV SCH ×2 (08:24→19:50)
--- NOTE | 2023-01-25 11:20 | Orthopedic Progress Note ---
Date of Service January 25, 2023 Assessment & Plan (1) Injury of thoracic spinal cord: Plan: This time explained to the patient that she must go to rehab. Her family would be unable to care for her in her current condition. She seems to be accepting this plan. I would states she is ready for rehab as soon as a bed is available. Admission and Anticipated Discharge Date Admission Date: January 20, 2023 Subjective Patient's pain is controlled. She feels she is having some more sensation in her feet and some of the previous leg pain she had prior to the stimulator placement. She was able to get to the chair yesterday with assistance. Physical Exam Physical Exam: On exam I am still appreciating some motor function of the right lower extremity. The left lower extremity still without evidence of motor function. Sensory is intact. Results & Data Vital Signs (Past 12 Hours) Vital Signs Temp Pulse Resp BP Pulse Ox O2 Del Method 01/25/23 09:26 136/54 L 01/25/23 07:46 36.8 C 55 L 16 196/76 H 97 Room Air
--- NOTE | 2023-01-25 13:26 | Hospitalist Progress Note ---
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 She is being managed for the following: Thoracic spine hematoma Recent outpatient spinal cord stimulator placement for chronic back pain (01/18) Status post evacuation/stimulator removal 01/20 Acute blood loss anemia: Likely secondary to recent operative interventions - resolved Patient is a status post #1 evacuation of thoracic hematoma. #2 revision laminotomy T10. #3 removal of a Nevro spinal cord stimulator paddle and battery. by Dr. Berg Postop management/analgesia as per orthopedics. PT/OT, DVT prophylaxis per primary team. Pt will benefit from transitioning to rehab. Indigestion/upper belly discomfort: Famotidine. Other chronic medical conditions: Continue with/resume home meds as and when able. hypertension, stable Hypothyroidism - c/w levothyroxine. chronic tremors/neuropathy as per records ongoing tobacco abuse. Counseled. Nicotine patch as needed. DVT prophylaxis. SCDs as per postop orders Full code Dispo: pt to go to rehab, pending placement Pt was seen and examined in collaboration with Dr. García, please see addendum Admission and Anticipated Discharge Date Admission Date: January 20, 2023 Supervising Physician Co-Signing Physician Notes Patient seen and examined Agree with evaluation and plans as detailed by Amanda Cardona PA-C Subjective Pt was seen and examined in room 308-1. F/U Back/feet pain. Currently c/o feet pain. Denies f/c/s, chest pain, sob,n/v/d. Appetite stable. No nursing complaints. Review of Systems Review of Systems: All systems reviewed & are unremarkable except as noted in HPI & below Physical Exam Physical Exam: Gen: WD/WN, NAD, A&O x3 HEENT: Normocephalic, atraumatic, conjunctivae moist, sclerae anicteric, mucous membranes moist. Lung: Clear to Auscultation bilaterally, no wheezes/rales/rhonchi Heart: Regular rate, regular rhythm, no murmurs, rubs, or gallops Abdomen: Soft, NT, ND +BS x 4 Extremities: No edema, but poor ROM to lower ext strength 1/5 b/l, decreased sensation ble, lumbar dressing cdi Skin: Warm, no rash, negative turgor. Results & Data Results & Data Vital Signs (Past 12 Hours) Vital Signs Temp Pulse Resp BP Pulse Ox O2 Del Method 01/25/23 09:26 136/54 L 01/25/23 07:46 36.8 C 55 L 16 196/76 H 97 Room Air Medications Administered Current Inpatient Medications Acetaminophen (Acetaminophen 500 Mg Tab) 1,000 mg PO Q8H PRN PRN Reason: MILD Pain Scale 1,2,3 & Pre PT Stop: 02/19/23 22:55 Last Admin: 01/25/23 10:39 Dose: 1,000 mg Al Hydrox/Mg Hydrox/Simethicone (Aluminum/Magnesium Susp 30 Ml Udc) 30 ml PO Q6H PRN PRN Reason: Dyspepsia Stop: 02/19/23 22:55 Baclofen (Baclofen 10 Mg Tab) 5 mg PO HS PRN PRN Reason: spasm Stop: 02/21/23 20:59 Last Admin: 01/22/23 07:35 Dose: 5 mg Bisacodyl (Bisacodyl 10 Mg Supp) 10 mg GA DAILY PRN PRN Reason: Constipation Stop: 02/19/23 22:55 Last Admin: 01/25/23 12:39 Dose: 10 mg Clonazepam (Clonazepam 1 Mg Tab) 1 mg PO BID PRN PRN Reason: Anxiety Stop: 02/19/23 22:55 Last Admin: 01/24/23 20:21 Dose: 1 mg Famotidine (Famotidine 20 Mg Tab) 20 mg PO Q12H PRN PRN Reason: Dyspepsia Stop: 02/19/23 22:55 Hydromorphone HCl (Hydromorphone Inj 0.5 Mg/0.5 Ml Syr) 0.5 mg IV Q3H PRN PRN Reason: MODERATE Pain (Scale 4,5,6) & Pre PT Stop: 02/03/23 22:55 Last Admin: 01/21/23 17:53 Dose: 0.5 mg Hydromorphone HCl (Hydromorphone Inj 1 Mg/Ml Syringe) 1 mg IV Q3H PRN PRN Reason: SEVERE Pain (Scale 7,8,9,10) Stop: 02/03/23 22:55 Last Admin: 01/23/23 23:25 Dose: 1 mg Hydroxyzine HCl (Hydroxyzine Hcl 25 Mg Tab) 25 mg PO Q8H PRN PRN Reason: Anxiety Stop: 02/19/23 22:55 Promethazine HCl 12.5 mg/ (Sodium Chloride) 50.5 mls @ 202 mls/hr IV Q6H PRN PRN Reason: Nausea &/or Vomiting Stop: 02/19/23 22:55 Dexamethasone 8 mg/ Syringe 2 mls @ 1 mls/min IV Q12 COUNTS INCLUDE 234 BEDS AT THE [facility] Stop: 02/23/23 08:59 Last Admin: 01/25/23 08:24 Dose: 1 mls/min Influenza Virus Vaccine Quadrival (Do Not Administer Flu Vaccine) 1 each N/A PRN PRN PRN Reason: Notification Stop: 02/19/23 22:55 Levothyroxine Sodium (Levothyroxine Sodium 112 Mcg Tablet) 112 mcg PO DAILYBB COUNTS INCLUDE 234 BEDS AT THE [facility] Stop: 02/22/23 08:59 Last Admin: 01/25/23 05:30 Dose: 112 mcg Magnesium Hydroxide (Magnesium Hydroxide Susp 30 Ml Udc) 30 ml PO Q24H PRN PRN Reason: Constipation Stop: 02/19/23 22:55 Last Admin: 01/24/23 11:58 Dose: 30 ml Metoclopramide HCl (Metoclopramide Hcl Inj 5 Mg/Ml 2 Ml Vial) 10 mg IV Q6H PRN PRN Reason: Nausea &/or Vomiting Stop: 02/19/23 22:55 Metoprolol Tartrate (Metoprolol Tartrate 25 Mg Tab) 25 mg PO BID COUNTS INCLUDE 234 BEDS AT THE [facility] Stop: 02/20/23 08:59 Last Admin: 01/25/23 08:23 Dose: 25 mg Naloxone HCl (Naloxone Hcl 0.4 Mg/1 Ml Vial/Carp) 0.1 mg IV Q5M PRN PRN Reason: Oversedation/Resp depression Stop: 02/19/23 22:55 Olanzapine (Olanzapine 10 Mg/2.1 Ml Sdv) 2.5 mg IM Q4H PRN PRN Reason: Anxiety/Agitation Stop: 02/21/23 06:34 Ondansetron HCl (Ondansetron Inj 2 Mg/Ml 2 Ml Vial) 4 mg IV Q6H PRN PRN Reason: Nausea &/or Vomiting Stop: 02/19/23 22:55 Ondansetron HCl (Ondansetron 4 Mg Od Tab) 4 mg PO Q6H PRN PRN Reason: Nausea Stop: 02/19/23 22:55 Last Admin: 01/24/23 13:48 Dose: 4 mg Oxycodone HCl (Oxycodone Hcl Ir 5 Mg Tab (Immediate Release)) 5 - 10 mg PO Q4H PRN PRN Reason: Pain & Pre PT Stop: 02/03/23 22:55 Last Admin: 01/25/23 02:07 Dose: 10 mg Pneumococcal Polyvalent Vaccine (Do Not Administer Pneumococcal Vaccine) 1 each N/A PRN PRN PRN Reason: Notification Stop: 02/19/23 22:55 Polyethylene Glycol (Polyethylene (Miralax) 17 Gm Pack) 17 gm PO Q6 JUAN MIGUEL Stop: 02/20/23 05:59 Last Admin: 01/25/23 12:38 Dose: 17 gm Senna/Docusate Sodium (Docusate Sodium/Senna 50/8.6mg Tab) 2 tab PO HS JUAN MIGUEL Stop: 02/20/23 20:59 Last Admin: 01/24/23 19:26 Dose: 2 tab Sodium Biphosphate/Sodium Phosphate (Sod Phosphate/Sod Biphosphate Enema 132 Ml Btl) 132 ml GA ONE PRN PRN Reason: Constipation Stop: 02/19/23 22:55 Tramadol HCl (Tramadol Hcl 50 Mg Tablet) 50 - 100 mg PO Q4H PRN PRN Reason: Moderate-Severe pain & Pre PT Stop: 02/19/23 22:55 Last Admin: 01/25/23 12:45 Dose: 100 mg Trazodone HCl (Trazodone Hcl 100 Mg Tab) 100 mg PO HS JUAN MIGUEL Stop: 02/20/23 20:59 Last Admin: 01/21/23 21:08 Dose: 100 mg Venlafaxine HCl (Venlafaxine Hcl 37.5 Mg Tab) 37.5 mg PO DAILY JUAN MIGUEL Stop: 02/22/23 08:59 Last Admin: 01/25/23 08:23 Dose: 37.5 mg
[2023-01-25] MEDS: clonazePAM 1 MG TAB PO PRN (13:59)
[2023-01-25] MEDS: HYDROmorphone INJ 0.5 MG/0.5 ML SYR IV PRN (14:17)
[2023-01-25] MEDS ORDERED: hydrALAZINE HCL 20 MG/ML VIAL IV ONE (16:15)
--- NOTE | 2023-01-25 16:36 | Communication Note ---
Date of Service: January 25, 2023 After further chart review I discussed with patient's RN patient has had a significant functional decline since January 20. Per patient she was ambulatory and living independently taking care of her dog without assist device up until January 18 when she had a spinal stimulator placed. After spinal stimulator placement she went to live with her aunt so she could help her take care of her dog and this is when she ended up falling frequently and on her back. She then presented to [facility] despite recommendations to present to [facility]. She was then transferred and on January 20 underwent thoracic hematoma evacuation along with spinal stimulator, paddle and battery removal. There was significant amount of hematoma per operative report. Since that time patient does not have any motor function to left lower extremity and minimal to right lower extremity. Sensation is diminished though feels slightly improved. Patient was able to get up to chair today but required significant assistance. She does have significant numbness to her bilateral lower extremities to the level of the umbilicus. She feels this is worsening. She is complaining of worsening pain and spasm to her lower extremities and worsening numbness which is making her very anxious. Given worsening sx of numbness, worsening pain and persistent reduction in functional capacity status post hematoma evacuation we will obtain MRI of thoracolumbar spine in setting of recent thoracic hematoma to ensure no recurrence We will defer further management to Dr. Berg based on these results. Patricia Cardona PA-C
[2023-01-25] MEDS ORDERED: HYDROmorphone INJ 0.5 MG/0.5 ML SYR IV PRN (16:51)
--- NOTE | 2023-01-25 17:05 | XRay Report ---
KUB CLINICAL HISTORY: ensure no retained spinal stimulator or battery COMPARISON STUDY: PET/CT March 16, 2022. FINDINGS: The bowel gas pattern is normal. No unexpected radiopaque foreign bodies within the abdomen or pelvis are identified. L1 compression deformity is incidentally noted. IMPRESSION: No contraindication to MRI within the abdomen or pelvis. ACT 112: Negative or not required by law. Electronically signed by: Bladimir Deluca M.D. 01/25/2023 5:03 PM
[2023-01-25] MEDS: DOCUSATE SODIUM/SENNA 50/8.6MG TAB PO SCH (19:49)
[2023-01-25] MEDS: BACLOFEN 10 MG TAB PO PRN (22:11)
[2023-01-26] MEDS: traMADol HCL 50 MG TABLET PO PRN ×4 (00:40→22:46)
[2023-01-26] MEDS: ACETAMINOPHEN 500 MG TAB PO PRN ×2 (04:19→12:47)
[2023-01-26] MEDS: POLYETHYLENE (MIRALAX) 17 GM PACK PO SCH ×4 (05:44→23:46)
[2023-01-26] MEDS: LEVOTHYROXINE SODIUM 112 MCG TABLET PO SCH (05:44)
--- NOTE | 2023-01-26 08:27 | Orthopedic Progress Note ---
Date of Service January 26, 2023 Assessment & Plan (1) Injury of thoracic spinal cord: Plan: At this time I encouraged the patient to get to the chair at least twice today. We will continue physical therapy and await for rehab placement. Admission and Anticipated Discharge Date Admission Date: January 20, 2023 Subjective Patient's back pain is controlled. She tolerated sitting in the chair yesterday. Physical Exam Physical Exam: On exam I appreciate steady modest improvement of the right lower extremity. Today is the first day was able to appreciate plantarflexion to the left lower extremity. Results & Data Vital Signs (Past 12 Hours) Vital Signs Temp Pulse Resp BP Pulse Ox O2 Del Method 01/26/23 07:31 36.9 C 56 L 16 161/49 H Room Air 01/25/23 22:10 167/76 H 01/25/23 20:57 37.1 C 53 L 16 180/64 H 97 Room Air
[2023-01-26] MEDS: METOPROLOL TARTRATE 25 MG TAB PO SCH ×2 (09:40→19:52)
[2023-01-26] MEDS: VENLAFAXINE HCL 37.5 MG TAB PO SCH (09:41)
[2023-01-26] MEDS: amLODIPine BESYLATE 5 MG TAB PO SCH (09:41)
[2023-01-26] MEDS: dexAMETHasone 8 MG in SYRINGE 0 ML IV SCH ×2 (09:49→19:52)
[2023-01-26] MEDS: oxyCODONE HCL IR 5 MG TAB (IMMEDIATE RELEASE) PO PRN ×2 (10:42→19:53)
[2023-01-26] MEDS: clonazePAM 1 MG TAB PO PRN (12:47)
--- NOTE | 2023-01-26 15:56 | Hospitalist Progress Note ---
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 She is being managed for the following: Thoracic spine hematoma Recent outpatient spinal cord stimulator placement for chronic back pain (01/18) Status post evacuation/stimulator removal 01/20 Acute blood loss anemia: Likely secondary to recent operative interventions - resolved Patient is a status post #2 evacuation of thoracic hematoma. #2 revision laminotomy T10. #3 removal of a Nevro spinal cord stimulator paddle and battery. by Dr. Berg Postop management/analgesia as per orthopedics. PT/OT, DVT prophylaxis per primary team. Pt will benefit from transitioning to rehab. Has refused MRI on multiple occasions despite explanation for imaging Indigestion/upper belly discomfort: Famotidine. Other chronic medical conditions: Continue with/resume home meds as and when able. Hypertension- BP elevated, amlodipine 5mg added with improved control - recent BP 136/76 Hypothyroidism - c/w levothyroxine. chronic tremors/neuropathy as per records ongoing tobacco abuse. Counseled. Nicotine patch as needed. DVT prophylaxis. SCDs as per postop orders Full code Dispo: pt to go to rehab, pending placement Admission and Anticipated Discharge Date Admission Date: January 20, 2023 Supervising Physician Co-Signing Physician Notes Patient seen and examined Reports lower extremity weakness LE weakness notable on exam However, patient declined imaging for better evaluation despite discussions about this yesterday and today Will have further conversation about this later. Agree with evaluation and plans as detailed by Becca Chawla PA-C Subjective Seen and examined in 308-1. Patient appears frustrated with hospitalization and questions she is being asked by providers. States leg is improving somewhat in strength, has moved to bedside chair with help from nursing. When discussing plan about MRI patient refuses, stating "why would i need that?" When given an explanation, she rolls her eyes and sits back. Discussed disposition to rehab. No CP, SOB, N/V, abdominal pain or dysuria. Review of Systems Review of Systems: At least ten systems reviewed and negative except as noted in the HPI. Physical Exam Physical Exam: Gen: WD/WN, NAD, A&O x3 with limited insight/judgement, sitting in bedside chair HEENT: Normocephalic, atraumatic, conjunctivae moist, sclerae anicteric, mucous membranes moist. Lung: Clear to Auscultation bilaterally, no wheezes/rales/rhonchi Heart: Regular rate, regular rhythm, no murmurs, rubs, or gallops Abdomen: Soft, NT, ND +BS x 4 Extremities: No edema, poor ROM to lower ext strength 1-2/5, RLE improved strength, decreased sensation ble, lumbar dressing cdi Skin: Warm, no rash Results & Data Results & Data Vital Signs (Past 12 Hours) Vital Signs Temp Pulse Pulse Pulse Resp BP BP 01/26/23 14:43 36.8 C 58 L 16 136/76 01/26/23 09:39 60 01/26/23 07:31 36.9 C 56 L 16 161/49 H Pulse Ox O2 Del Method 01/26/23 14:43 98 Room Air 01/26/23 09:39 01/26/23 07:31 Room Air
[2023-01-26] MEDS: DOCUSATE SODIUM/SENNA 50/8.6MG TAB PO SCH (19:53)
[2023-01-27] MEDS: clonazePAM 1 MG TAB PO PRN ×3 (01:30→22:41)
[2023-01-27] MEDS: oxyCODONE HCL IR 5 MG TAB (IMMEDIATE RELEASE) PO PRN (05:58)
[2023-01-27] MEDS: POLYETHYLENE (MIRALAX) 17 GM PACK PO SCH ×4 (05:58→22:38)
[2023-01-27] MEDS: LEVOTHYROXINE SODIUM 112 MCG TABLET PO SCH (05:59)
[2023-01-27 06:36] LABS: Hematocrit (blood only) 38.6 % (37.0-47.0); Hemoglobin 13.8 g/dl (12.0-16.0); Mean Corpuscular Hemoglobin 32.8 pg (25.0-34.0); Mean Corpuscular Hgb Conc 35.8 g/dL (32.0-36.0); Mean Corpuscular Volume 91.7 fL (80.0-100.0); Mean Platelet Volume 9.5 fL (9.4-12.4); Platelet Count 352 K/uL (130-400); RDW Coefficient of Variation 12.4 % (11.5-14.5); RDW Standard Deviation 41.3 fL (36.4-46.3); Red Blood Count 4.21 M/uL (4.20-5.40); White Blood Count 14.73 K/ul (4.8-10.8)
[2023-01-27] MEDS: amLODIPine BESYLATE 5 MG TAB PO SCH (09:32)
[2023-01-27] MEDS: VENLAFAXINE HCL 37.5 MG TAB PO SCH (09:33)
[2023-01-27] MEDS: METOPROLOL TARTRATE 25 MG TAB PO SCH ×2 (09:33→19:56)
[2023-01-27] MEDS: traMADol HCL 50 MG TABLET PO PRN ×3 (09:33→19:51)
[2023-01-27] MEDS: dexAMETHasone 8 MG in SYRINGE 0 ML IV SCH ×2 (09:33→21:07)
--- NOTE | 2023-01-27 09:43 | Orthopedic Progress Note ---
Date of Service January 27, 2023 Assessment & Plan (1) Injury of thoracic spinal cord: Plan: At this time we will continue physical therapy encourage her to get to the chair at least 2-3 times a day. We are awaiting rehab placement. Admission and Anticipated Discharge Date Admission Date: January 20, 2023 Subjective Patient's pain is controlled. She tolerated getting to a chair yesterday. Physical Exam Physical Exam: Sensory continues to be intact bilateral extremities. She is improving strength to the right lower extremity. Is still very diminished response to the left lower extremity. Results & Data Vital Signs (Past 12 Hours) Vital Signs Temp Pulse Pulse Resp BP Pulse Ox O2 Del Method 01/27/23 09:31 62 01/27/23 07:45 36.8 C 56 L 16 164/67 H 96 Room Air
--- NOTE | 2023-01-27 13:48 | Hospitalist Progress Note ---
Date of Service January 27, 2023 Assessment & Plan (1) Injury of thoracic spinal cord: Plan: 67-year-old lady with PMH of HTN, chronic back pain, chronic tremors, neuropathy, hypothyroidism, ongoing tobacco abuse who recently had outpatient spinal cord stimulator placement 2 days ago RDA presented to the ED 01/20 with worsening postprocedure lower back discomfort associated with BLE weakness/sensation changes. She is being managed for the following: Thoracic spine hematoma Recent outpatient spinal cord stimulator placement for chronic back pain (01/18) Status post evacuation/stimulator removal 01/20 Acute blood loss anemia: Likely secondary to recent operative interventions - resolved Patient is a status post evacuation of thoracic hematoma on 01/20 following recent outpatient spinal cord stimulator placement for chronic back pain on 01/18. Postop management/analgesia as per orthopedics. PT/OT, DVT prophylaxis per primary team. Pt will benefit from transitioning to rehab. Has refused MRI on multiple occasions despite explanation for imaging - readdressed this morning and seemed more agreeable. Ortho spine discontinuing oxycodone as it seemed to be causing moments of agitation/delirium. PRN tylenol and tramadol only moving forward. Mood improved Indigestion/upper belly discomfort: Famotidine. Other chronic medical conditions: Continue with/resume home meds as and when able. Hypertension- BP elevated, amlodipine 5mg added with improved control - recent BP 136/76 Hypothyroidism - c/w levothyroxine. chronic tremors/neuropathy as per records ongoing tobacco abuse. Counseled. Nicotine patch as needed. DVT prophylaxis. SCDs as per postop orders for now - if hospitalization is prolonged may need to consider adding chemical VTE Full code Dispo: pt to go to rehab, pending placement Admission and Anticipated Discharge Date Admission Date: January 20, 2023 Supervising Physician Co-Signing Physician Notes Patient seen and examined Now requesting for MRI that she has been refusing for the past 2 days MRI reordered Subjective Seen and examined in 308-1. Patient more cooperative and calm today. States RLE strength continues to improve faster than left. Still having numbness and nerve pain in BLE, most noticable in anterior thighs. No other new issues over night. Readdressed benefit of further imaging with MRI and is agreeable to it at this moment. No F/C, CP, SOB, N/V, abdominal pain, dysuria, diarrhea. Review of Systems Review of Systems: At least ten systems reviewed and negative except as noted in the HPI. Physical Exam Physical Exam: Gen: WD/WN, NAD, A&O x3 with limited insight/judgement, sitting up in bed HEENT: Normocephalic, atraumatic, conjunctivae moist, sclerae anicteric, mucous membranes moist. Lung: Clear to Auscultation bilaterally, no wheezes/rales/rhonchi Heart: Regular rate, regular rhythm, no murmurs, rubs, or gallops Abdomen: Soft, NT, ND +BS x 4 Extremities: No edema, poor ROM to lower ext - RLE 2+/5, LLE 1-2/5. improved strength, decreased sensation ble, lumbar dressing cdi Skin: Warm, no rash Results & Data Results & Data Vital Signs (Past 12 Hours) Vital Signs Temp Pulse Pulse Resp BP Pulse Ox O2 Del Method 01/27/23 09:31 62 01/27/23 07:45 36.8 C 56 L 16 164/67 H 96 Room Air Laboratory Results Short CBC 01/27/23 Range/Units 06:12 WBC 14.73 H (4.8-10.8) K/ul Hgb 13.8 (12.0-16.0) g/dl Hct 38.6 (37.0-47.0) % Plt Count 352 (130-400) K/uL Diagnostic Findings Lumbar Spine X-Ray 01/20/23 20:30 FL lumbar spine 2-3V CLINICAL HISTORY: EVAC HEMATOMA AND REMOVAL OF SPINAL CORD STIMULATOR COMPARISON STUDY: PET/CT March 16, 2022. FLUOROSCOPY TIME: 2 seconds. Ka, r: 0.46 mGy FLUOROSCOPIC IMAGES: 2 FINDINGS: Fluoroscopy was provided during removal of a spinal cord stimulator. The stimulator is noted on these 2 fluoroscopic images. IMPRESSION: Fluoroscopy provided during removal of a spinal cord stimulator. ACT 112: Negative or not required by law. Electronically signed by: Bladimir Deluca M.D. 01/21/2023 10:14 AM KUB X-Ray 01/25/23 16:29 KUB CLINICAL HISTORY: ensure no retained spinal stimulator or battery COMPARISON STUDY: PET/CT March 16, 2022. FINDINGS: The bowel gas pattern is normal. No unexpected radiopaque foreign bodies within the abdomen or pelvis are identified. L1 compression deformity is incidentally noted. IMPRESSION: No contraindication to MRI within the abdomen or pelvis. ACT 112: Negative or not required by law. Electronically signed by: Bladimir Deluca M.D. 01/25/2023 5:03 PM
[2023-01-27] MEDS: MAGNESIUM HYDROXIDE SUSP 30 ML UDC PO PRN (16:32)
[2023-01-27] MEDS ORDERED: GADOBUTROL 65ML VIAL IV ONE (18:27)
--- NOTE | 2023-01-27 19:13 | Magnetic Resonance Report ---
MRI OF THE THORACIC SPINE COMBO CLINICAL HISTORY: Lower extremity weakness. Reported history of recent spinal stimulator placement an d removal. COMPARISON STUDY: PET/CT dated 03/16/2022. KUB dated 01/25/2023. TECHNIQUE: MRI of the thoracic spine is performed utilizing various T1 and T2-weighted sequences in he axial and sagittal planes. Contrast-enhanced images are provided following IV administration of 5. 5 cc of Gadavist. The examination is significantly degraded by motion artifact. FINDINGS: Marrow signal intensity is markedly heterogeneous. There is a chronic compression deformity of T12. Vertebral body height is otherwise maintained throughout the thoracic spine. Alignment is pr eserved. There is minimal kyphoscoliosis. Anterior and lateral marginal osteophytes are seen througho ut. The spinous processes at T8 and T9 are not visualized and presumed surgically absent. No destruct gabrielle bony lesion is identified. Disc desiccation and loss of height is seen throughout the thoracic sp ine. There is no large disc herniation identified. There is a large crescentic lesion/collection in t posterior epidural space at T6-T8. This is T2 hyperintense, T1 hyperintense, and does appear to sh ow drop in signal/possible susceptibility artifact on the STIR sequence. This does not show clear pos tcontrast enhancement, and this measures 3.8 x 0.8 x 1.7 cm as seen on sagittal image #8. This efface s the posterior aspect of the thecal sac and the posterior aspect of the cord. There is at least mode rate central canal stenosis at this level but a minimum AP diameter of approximately 5 mm. The thorac ic spinal cord is normal in morphology. Question mild edema within the cord at the level of T7. The t horacic cord otherwise shows normal signal intensity. The conus medullaris terminates at the level of L1. No abnormal cord enhancement is identified on the postcontrast sequences. There is edema within the posterior paraspinous soft tissues at T8 and T9 with nonspecific patchy enhancement. A subcutaneo us fluid collection is seen deep to the dermal surface in the posterior midline at T10-T11. This ash ures 4.4 x 0.9 x 2.3 cm as seen on sagittal image #9. No pleural effusion is identified. IMPRESSION: 1. There is a 3.8 x 0.8 x 1.7 cm lesion/collection in the posterior epidural space at T6-T8. This lik timmy represents an epidural hematoma, and this causes significant mass effect in the posterior aspect of the thecal sac with mild effacement of the cord. A soft tissue lesion is considered much less like ly, and the sterility of this fluid cannot be assessed by imaging. Clinical correlation will be amee yi. Surgical evaluation is advised. 2. Question mild edema within the cord at T7. 3. The posterior elements at T8 and T9 are not visualized and presumed surgically absent. 4. There is nonspecific edema within the posterior paraspinous soft tissues as above, which may be re lated to recent surgery/procedure. Infection is not excluded. Correlate clinically. 5. A small subcutaneous fluid collection deep to the dermal surface at T10-T11 may represent a seroma . Again, the sterility of this fluid cannot be assessed by imaging. Findings were reported to Dr. García at the time of interpretation. Dictated: 01/27/2023 6:40 PM Transcribed: 01/27/2023 7:02 PM [place] [id number] [place] [id number] Electronically signed by: Fausto Ingram M.D. 01/27/2023 7:10 PM
[2023-01-27] MEDS: DOCUSATE SODIUM/SENNA 50/8.6MG TAB PO SCH (19:56)
--- NOTE | 2023-01-27 20:27 | Magnetic Resonance Report ---
MRI OF THE LUMBAR SPINE COMBO CLINICAL HISTORY: Lower extremity weakness. Recent spinal stimulator placement/removal. COMPARISON STUDY: PET/CT dated 03/16/2022. MRI of the thoracic spine performed concurrently on 01/28/20. TECHNIQUE: MRI of the lumbar spine is performed utilizing various T1 and T2-weighted sequences in the axial and sagittal planes. Contrast-enhanced sequences are acquired following the IV administration of 5.5 cc of Gadavist. 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 There are likely 11 thoracic vertebral bodies with a tra nsitional cervicothoracic vertebral body. There are 5 nonrib bearing lumbar type vertebral bodies. Lumbar spine: Marrow signal intensity is markedly heterogeneous. There is a chronic compression defor mity of L1. (Again, this was labeled T12 on the thoracic spinal MRI). Vertebral body height is otherw ise maintained throughout the lumbar spine. Anterior and lateral marginal osteophytes are seen throug hout. The transverse and spinous processes appear intact. There is no evidence of spondylolysis. No d estructive bony lesion is seen. There is chronic degenerative endplate change seen at most lumbar lev els. Mild endplate edema is noted at L2-L3 and L5-S1. Intervertebral discs: Disc desiccation and loss of height is seen throughout the lumbar spine. Loss o f height is moderate at L4-L5 and mild to moderate at the remaining levels. Spinal cord: The visualized spinal cord is normal in morphology and signal intensity. The conus medul sean terminates at the L2-L3 interspace. The nerve roots of the cauda equina are normal in morpholog y. No abnormal postcontrast enhancement is seen. L1-L2: There is minimal posterior disc bulge. There is no significant acquired compromise of the cent ral canal. Facet arthropathy contributes to mild to moderate left and mild right neural foraminal mariluz rowing. L2-L3: There is minimal posterior disc bulge. No significant acquired compromise of the central canal is seen. There is a left lateral disc bulge which contributes to subarticular stenosis. In conjuncti on with facet arthropathy, there is moderate left neural foraminal narrowing. The right neural forame n is patent. L3-L4: There is a tiny posterior disc osteophyte complex. No significant acquired compromise of the c entral canal is seen. Facet arthropathy is of no consequence. The neural foramina appear patent. L4-L5: There is posterior disc bulge eccentric to the right. This likely impinges in the transiting r ight-sided nerve roots. A right lateral disc bulge contributes to subarticular stenosis and likely im pinges on the exiting right L4 nerve root. In conjunction with facet arthropathy, there is mild right neural foraminal narrowing. The left neural foramen is clear. There is no significant central canal stenosis at this level. L5-S1: There is minimal posterior disc bulge. The central canal is clear. Facet arthropathy is of no consequence. The neural foramina are patent. Sacrum: The visualized sacrum is normal in morphology and signal intensity. Small Tarlov cysts are no jonathon at S3. Soft tissues: There is fatty atrophy of the paraspinous musculature. Edema within the posterior wilson pinous soft tissues and a subcutaneous fluid collection in the lower thoracic region is discussed und er the separately reported thoracic spinal MRI. The retroperitoneal structures are grossly unremarkab le but incompletely evaluated. IMPRESSION: 1. There is no large disc herniation or central canal stenosis seen throughout the lumbar spine. 2. Degenerative disc disease and spondylosis as above. See discussion for detailed level by level vaishnavi lysis. 3. No acute/destructive bony process is seen. 4. There is no abnormal postcontrast enhancement. 5. 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 This is discussed above. Dictated: 01/27/2023 7:26 PM Transcribed: 01/27/2023 7:47 PM [place] [id number] [id number] Electronically signed by: Fausto Ingram M.D. 01/27/2023 8:25 PM
[2023-01-27] MEDS: ACETAMINOPHEN 500 MG TAB PO PRN (21:07)
[2023-01-28] MEDS: BACLOFEN 10 MG TAB PO PRN ×2 (00:04→21:10)
[2023-01-28] MEDS ORDERED: KETOROLAC TROMETHAMINE 15 MG/ML VIAL IV ONE ×2 (01:06→01:35)
[2023-01-28] MEDS: traMADol HCL 50 MG TABLET PO PRN ×5 (02:45→23:52)
[2023-01-28] MEDS: ACETAMINOPHEN 500 MG TAB PO PRN ×3 (05:02→23:52)
[2023-01-28] MEDS: LEVOTHYROXINE SODIUM 112 MCG TABLET PO SCH (06:45)
[2023-01-28] MEDS: dexAMETHasone 8 MG in SYRINGE 0 ML IV SCH ×2 (08:09→21:10)
[2023-01-28] MEDS: VENLAFAXINE HCL 37.5 MG TAB PO SCH (08:10)
[2023-01-28] MEDS: amLODIPine BESYLATE 5 MG TAB PO SCH (08:10)
[2023-01-28] MEDS: METOPROLOL TARTRATE 25 MG TAB PO SCH ×2 (08:10→21:10)
[2023-01-28 08:45] LABS: Calcium 8.4 mg/dl (8.6-10.3); Potassium 4.2 mmol/L (3.5-5.1)
[2023-01-28 08:51] LABS: BUN Creatinine Ratio 47.5 (10-20); Creatinine Clr Calc Pharmacy 83.3 ml/min; Est GFR (African American) 110.3 ml/min; Est GFR (Non-African American) 95.1 ml/min
[2023-01-28 09:18] LABS: Hematocrit (blood only) 38.3 % (37.0-47.0); Hemoglobin 13.5 g/dl (12.0-16.0); Mean Corpuscular Hemoglobin 32.6 pg (25.0-34.0); Mean Corpuscular Hgb Conc 35.2 g/dL (32.0-36.0); Mean Corpuscular Volume 92.5 fL (80.0-100.0); Mean Platelet Volume 9.8 fL (9.4-12.4); Platelet Count 336 K/uL (130-400); RDW Coefficient of Variation 12.7 % (11.5-14.5); RDW Standard Deviation 43.1 fL (36.4-46.3); Red Blood Count 4.14 M/uL (4.20-5.40); White Blood Count 14.64 K/ul (4.8-10.8)
--- NOTE | 2023-01-28 10:29 | Orthopedic Progress Note ---
Date of Service January 28, 2023 Assessment & Plan (1) Injury of thoracic spinal cord: Plan: MRIs of the thoracic and lumbar spine available for review. They do demonstrate evidence of previous decompression and hematoma in the operative bed. There is some questionable edema in the spinal cord at roughly T7. This would be consistent with her presentation last Monday. She is steadily improving clinically would not recommend a repeat surgery. We will continue with transfers to the chair as tolerated and plan for rehab next week.. Admission and Anticipated Discharge Date Admission Date: January 20, 2023 Subjective Patient's pain is controlled. She is still noting progress with transfers to the chair and improvement in leg function. She denies any decline in sensory to lower extremities. Physical Exam Physical Exam: On exam she is in but bed. She exhibits a steady improved function to the right lower extremity with hip flexion quadriceps and dorsiflexion plantarflexion. Left lower extremity unable to appreciate some very modest plantarflexion. Sensory again is symmetric and intact. Results & Data Vital Signs (Past 12 Hours) Vital Signs Temp Pulse Resp BP Pulse Ox O2 Del Method 01/28/23 07:10 36.5 C 61 14 152/67 H 93 Room Air 01/27/23 23:43 37.0 C 64 18 132/67 94 Room Air
--- NOTE | 2023-01-28 11:02 | Hospitalist Progress Note ---
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 She is being managed for the following: Thoracic spine hematoma Recent outpatient spinal cord stimulator placement for chronic back pain (01/18) Status post evacuation/stimulator removal 01/20 Acute blood loss anemia: Resolved Patient is a status post evacuation of thoracic hematoma on 01/20 following recent outpatient spinal cord stimulator placement for chronic back pain on 01/18. MRI of thoracic/lumbar spine on 01/27/23 was discussed with Ortho. Did show evidence of previous decompression and hematoma in operative bed, ?spinal cord edema at T7 With clinical improvement, Ortho does not recommend surgery at this time Continue pain control, bowel regimen Continue PT/OT CM working on placement Hypertension- BP elevated, amlodipine 5mg added with improved control - recent BP 136/76 Hypothyroidism - c/w levothyroxine. DVT prophylaxis. SCDs Full code I spent a total of 35 minutes coordinating, documenting and providing care for this patient excluding time spent in performance of separately billed services Admission and Anticipated Discharge Date Admission Date: January 20, 2023 Subjective Patient seen and examined Had BM today per RN Reports only weakness in lower extremities Denied any other complaints Physical Exam Constitutional: + well hydrated; no acute distress Eyes: PERRL, conjunctivae normal, anicteric sclerae ENMT: external ear and nose normal, oropharynx normal Respiratory: normal respiratory effort, lungs clear to auscultation Cardiovascular: Rate/Rhythm: regular rate and regular rhythm S1 S2 Gastrointestinal (Abdomen): normal bowel sounds, soft, nontender, no hepatosplenomegaly Musculoskeletal: No pedal edema Neurologic: PERRL, EOMI, accommodation nl, no face palsy, no dysarthria Able to move RLE a little more than left. Dorsiflexion/plantar flexion on right foot. Unable to move LLE Sensation intact Results & Data Results & Data Vital Signs (Past 12 Hours) Vital Signs Temp Pulse Resp BP Pulse Ox O2 Del Method 01/28/23 07:10 36.5 C 61 14 152/67 H 93 Room Air 01/27/23 23:43 37.0 C 64 18 132/67 94 Room Air Laboratory Results Abnormal lab results 01/28/23 01/28/23 Range/Units 07:54 07:54 WBC 14.64 H (4.8-10.8) K/ul RBC 4.14 L (4.20-5.40) M/uL Sodium 134 L (136-145) mmol/L BUN 29 H (6-23) mg/dl BUN/Creatinine Ratio 47.5 H (10-20) Glucose 121 H (70-99(Fasting)) mg/dl Calcium 8.4 L (8.6-10.3) mg/dl
[2023-01-28] MEDS: clonazePAM 1 MG TAB PO PRN (17:12)
[2023-01-28] MEDS: DOCUSATE SODIUM/SENNA 50/8.6MG TAB PO SCH (21:09)
[2023-01-29] MEDS: LEVOTHYROXINE SODIUM 112 MCG TABLET PO SCH (06:01)
--- NOTE | 2023-01-29 07:02 | Orthopedic Progress Note ---
Date of Service January 29, 2023 Assessment & Plan (1) Injury of thoracic spinal cord: Plan: Patient is stable at this point. She is at her baseline. We are going to continue with pain control measures and bedside physical therapy. We will get her to rehab later this week. She is remain on GI DVT prophylaxis as well. Admission and Anticipated Discharge Date Admission Date: January 20, 2023 Subjective Patient was seen bedside in room 308. She complains of numbness in both of her legs. She is not having eleanor pain however. She denies any progressive numbness, tingling, or paresthesias Physical Exam Physical Exam: On exam she is alert and oriented. She answers questions appropriately. She has difficulties with dorsiflexion and plantarflexion bilaterally. She has sensation to light touch to the mid tibia past the mid tibia down to the feet however her sensation is blunted. Her calves are supple and nontender her abdomen soft and nontender. Results & Data Vital Signs (Past 12 Hours) Vital Signs Temp Pulse Resp BP Pulse Ox O2 Del Method 01/28/23 21:10 Room Air 01/28/23 21:08 36.8 C 60 16 137/70 97 Room Air
[2023-01-29] MEDS: dexAMETHasone 8 MG in SYRINGE 0 ML IV SCH ×2 (07:58→21:10)
[2023-01-29] MEDS: amLODIPine BESYLATE 5 MG TAB PO SCH (07:58)
[2023-01-29] MEDS: ACETAMINOPHEN 500 MG TAB PO PRN ×2 (07:58→19:40)
[2023-01-29] MEDS: clonazePAM 1 MG TAB PO PRN ×2 (07:58→21:16)
[2023-01-29] MEDS: METOPROLOL TARTRATE 25 MG TAB PO SCH ×2 (07:59→21:13)
[2023-01-29] MEDS: VENLAFAXINE HCL 37.5 MG TAB PO SCH (07:59)
[2023-01-29] MEDS: traMADol HCL 50 MG TABLET PO PRN ×2 (12:09→16:12)
--- NOTE | 2023-01-29 13:36 | Hospitalist Progress Note ---
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 She is being managed for the following: Thoracic spine hematoma Recent outpatient spinal cord stimulator placement for chronic back pain (01/18) Status post evacuation/stimulator removal 01/20 Acute blood loss anemia: Resolved Patient is a status post evacuation of thoracic hematoma on 01/20 following recent outpatient spinal cord stimulator placement for chronic back pain on 01/18. MRI of thoracic/lumbar spine on 01/27/23 was discussed with Ortho. Did show evidence of previous decompression and hematoma in operative bed, ?spinal cord edema at T7 With clinical improvement, Ortho does not recommend surgery at this time Continue pain control, bowel regimen Continue PT/OT CM working on placement Hypertension- Was started on amlodipine. Continue to monitor Hypothyroidism - Continue levothyroxine. DVT prophylaxis. SCDs Full code I spent a total of 30 minutes coordinating, documenting and providing care for this patient excluding time spent in performance of separately billed services Admission and Anticipated Discharge Date Admission Date: January 20, 2023 Subjective Patient seen and examined Reports only weakness in lower extremities Denied any new complaints Physical Exam Constitutional: + well hydrated; no acute distress Eyes: PERRL, conjunctivae normal, anicteric sclerae ENMT: external ear and nose normal, oropharynx normal Respiratory: normal respiratory effort, lungs clear to auscultation Cardiovascular: Rate/Rhythm: regular rate and regular rhythm S1 S2 Gastrointestinal (Abdomen): normal bowel sounds, soft, nontender, no hepatosplenomegaly Neurologic: PERRL, EOMI, accommodation nl, no face palsy, no dysarthria Able to move RLE a little more than left. Plantar flexion on right foot. Unable to move LLE Results & Data Results & Data Vital Signs (Past 12 Hours) Vital Signs Temp Pulse Resp BP Pulse Ox O2 Del Method 01/29/23 07:02 Room Air 01/29/23 07:02 36.5 C 65 18 160/70 H 98 Room Air
[2023-01-29] MEDS: DOCUSATE SODIUM/SENNA 50/8.6MG TAB PO SCH (21:09)
[2023-01-30] MEDS: traMADol HCL 50 MG TABLET PO PRN ×5 (02:00→20:52)
[2023-01-30] MEDS: LEVOTHYROXINE SODIUM 112 MCG TABLET PO SCH (05:47)
[2023-01-30] MEDS: VENLAFAXINE HCL 37.5 MG TAB PO SCH (08:44)
[2023-01-30] MEDS: amLODIPine BESYLATE 5 MG TAB PO SCH (08:45)
[2023-01-30] MEDS: METOPROLOL TARTRATE 25 MG TAB PO SCH ×2 (08:46→20:40)
[2023-01-30] MEDS: dexAMETHasone 8 MG in SYRINGE 0 ML IV SCH (08:47)
[2023-01-30] MEDS: clonazePAM 1 MG TAB PO PRN (08:50)
[2023-01-30] MEDS: ACETAMINOPHEN 500 MG TAB PO PRN ×2 (10:27→18:33)
--- NOTE | 2023-01-30 10:43 | Orthopedic Progress Note ---
Date of Service January 30, 2023 Assessment & Plan (1) Injury of thoracic spinal cord: Plan: At this time we will continue to encourage transfers to the chair and to be upright is much as she is able to tolerate physically. We will continue physical therapy for lower extremity Admission and Anticipated Discharge Date Admission Date: January 20, 2023 Subjective Patient's back pain is controlled. She is noting some increased pain in her feet. She states that she is improving with her transitions to the chair. Physical Exam Physical Exam: On exam she continues to demonstrate subtle improvement of function to the left lower extremity. There is now more appreciable plantarflexion dorsiflexion of the foot. The right lower extremity continues to demonstrate incremental improvement with hip flexion plantarflexion and dorsiflexion. Results & Data Vital Signs (Past 12 Hours) Vital Signs Temp Pulse Pulse Resp BP BP Pulse Ox 01/30/23 08:46 62 111/64 01/30/23 07:33 36.6 C 58 L 16 152/70 H 97 O2 Del Method 01/30/23 08:46 01/30/23 07:33 Room Air
--- NOTE | 2023-01-30 13:46 | Hospitalist Progress Note ---
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 She is being managed for the following: Thoracic spine hematoma Recent outpatient spinal cord stimulator placement for chronic back pain (01/18) Status post evacuation/stimulator removal 01/20 Acute blood loss anemia: Resolved Patient is a status post evacuation of thoracic hematoma on 01/20 following recent outpatient spinal cord stimulator placement for chronic back pain on 01/18. MRI of thoracic/lumbar spine on 01/27/23 was discussed with Ortho. Did show evidence of previous decompression and hematoma in operative bed, ?spinal cord edema at T7 With clinical improvement, Ortho does not recommend surgery at this time Continue PT/OT Pain control CM working on placement Hypertension- Was started on amlodipine. Continue to monitor Hypothyroidism - Continue levothyroxine. DVT prophylaxis. SCDs Full code I spent a total of 30 minutes coordinating, documenting and providing care for this patient excluding time spent in performance of separately billed services Admission and Anticipated Discharge Date Admission Date: January 20, 2023 Subjective Patient seen and examined No new complaints today Physical Exam Constitutional: + well hydrated; no acute distress Eyes: PERRL, conjunctivae normal, anicteric sclerae ENMT: external ear and nose normal, oropharynx normal Respiratory: normal respiratory effort, lungs clear to auscultation Cardiovascular: Rate/Rhythm: regular rate and regular rhythm S1 S2 Gastrointestinal (Abdomen): normal bowel sounds, soft, nontender, no hepatosplenomegaly Musculoskeletal: Improvement in right foot plantarflexion and dorsiflexion Mild right hip flexion Neurologic: PERRL, EOMI, accommodation nl, no face palsy, no dysarthria Psychiatric: A+Ox3, euthymic affect Results & Data Results & Data Vital Signs (Past 12 Hours) Vital Signs Temp Pulse Pulse Resp BP BP Pulse Ox 01/30/23 08:46 62 111/64 01/30/23 07:33 36.6 C 58 L 16 152/70 H 97 O2 Del Method 01/30/23 08:46 01/30/23 07:33 Room Air
--- NOTE | 2023-01-30 20:19 | XRay Report ---
KUB HISTORY: Abdominal bloating and pain. COMPARISON: KUB 01/25/2023. FINDINGS: The lung bases are clear. Mild dextroscoliosis of the lumbar spine. Moderate fecal retentio n is noted. No dilated loops of small bowel to suggest an obstruction. No renal calculi. No ureteral calculi. No pneumoperitoneum or pneumatosis. IMPRESSION: 1. Nonobstructive bowel gas pattern. 2. Moderate fecal retention ACT 112: Negative or not required by law. Electronically signed by: Connor Tao M.D. 01/30/2023 8:18 PM
[2023-01-30] MEDS: DOCUSATE SODIUM/SENNA 50/8.6MG TAB PO SCH (20:52)
[2023-01-30] MEDS ORDERED: bisacodyL 10 MG SUPP PR STA (23:19)
[2023-01-31] MEDS: traMADol HCL 50 MG TABLET PO PRN ×6 (00:56→22:51)
[2023-01-31] MEDS: LEVOTHYROXINE SODIUM 112 MCG TABLET PO SCH (05:58)
[2023-01-31] MEDS: BACLOFEN 10 MG TAB PO PRN ×2 (07:54→20:58)
[2023-01-31] MEDS: METOPROLOL TARTRATE 25 MG TAB PO SCH ×2 (07:54→20:58)
[2023-01-31] MEDS: VENLAFAXINE HCL 37.5 MG TAB PO SCH (07:55)
[2023-01-31] MEDS: amLODIPine BESYLATE 5 MG TAB PO SCH (07:55)
[2023-01-31] MEDS: dexAMETHasone 8 MG in SYRINGE 0 ML IV SCH (07:56)
[2023-01-31] MEDS: ACETAMINOPHEN 500 MG TAB PO PRN ×2 (07:59→17:27)
--- NOTE | 2023-01-31 10:14 | Orthopedic Progress Note ---
Date of Service January 31, 2023 Assessment & Plan (1) Injury of thoracic spinal cord: Plan: At this time we will initiate occupational therapy for their input and possible rehab placement later this week. Admission and Anticipated Discharge Date Admission Date: January 20, 2023 Subjective Back pain is controlled. She is still experiencing intermittent foot pain which was her pre-existing issue. Physical Exam Physical Exam: On exam she continues to demonstrate incremental improvement of strength to the right and left lower extremity. Sensory intact. Results & Data Vital Signs (Past 12 Hours) Vital Signs Temp Pulse Resp BP Pulse Ox O2 Del Method 01/31/23 07:15 36.4 C L 62 16 156/79 H 98 Room Air
--- NOTE | 2023-01-31 13:09 | Hospitalist Progress Note ---
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 She is being managed for the following: Thoracic spine hematoma Recent outpatient spinal cord stimulator placement for chronic back pain (01/18) Status post evacuation/stimulator removal 01/20 Acute blood loss anemia: Resolved Patient is a status post evacuation of thoracic hematoma on 01/20 following recent outpatient spinal cord stimulator placement for chronic back pain on 01/18. MRI of thoracic/lumbar spine on 01/27/23 was discussed with Ortho. Did show evidence of previous decompression and hematoma in operative bed, ?spinal cord edema at T7 With clinical improvement, Ortho does not recommend surgery at this time Continue PT/OT Pain control CM working on placement Hypertension- Was started on amlodipine. Continue to monitor, improving with bp 156/79 Hypothyroidism - Continue levothyroxine. DVT prophylaxis. SCDs Full code Pt was seen and examined in collaboration with Dr. García, please see addendum Admission and Anticipated Discharge Date Admission Date: January 20, 2023 Supervising Physician Co-Signing Physician Notes Patient seen and examined Plans as detailed by Amanda Cardona PA-C Subjective Patient was seen and examined in room 308. Follow-up with thoracic hematoma. "I didn't do it." This is what the pt states when I walk in the room. She asks, "will I ever walk again." She denies f/c/s, chest pain, sob, n/v/d. Small loose BM this am. Review of Systems Review of Systems: All systems reviewed & are unremarkable except as noted in HPI & below Physical Exam Physical Exam: Gen: WD/WN, NAD, A&O x3 HEENT: Normocephalic, atraumatic, conjunctivae moist, sclerae anicteric, mucous membranes moist. Lung: Clear to Auscultation bilaterally, no wheezes/rales/rhonchi Heart: Regular rate, regular rhythm, no murmurs, rubs, or gallops Abdomen: Soft, NT, ND +BS x 4 Extremities: No edema, but poor ROM to lower ext strength 1/5 b/l, decreased sensation ble, lumbar dressing cdi Skin: Warm, no rash, negative turgor. Results & Data Results & Data Vital Signs (Past 12 Hours) Vital Signs Temp Pulse Resp BP Pulse Ox O2 Del Method 01/31/23 07:15 36.4 C L 62 16 156/79 H 98 Room Air
[2023-01-31] MEDS: clonazePAM 1 MG TAB PO PRN (18:41)
[2023-01-31] MEDS: DOCUSATE SODIUM/SENNA 50/8.6MG TAB PO SCH (20:58)
[2023-02-01] MEDS: ACETAMINOPHEN 500 MG TAB PO PRN ×2 (01:18→08:50)
[2023-02-01] MEDS: LEVOTHYROXINE SODIUM 112 MCG TABLET PO SCH (05:27)
[2023-02-01] MEDS: traMADol HCL 50 MG TABLET PO PRN ×3 (05:27→15:15)
[2023-02-01] MEDS: amLODIPine BESYLATE 5 MG TAB PO SCH (08:46)
[2023-02-01] MEDS: METOPROLOL TARTRATE 25 MG TAB PO SCH (08:46)
[2023-02-01] MEDS: VENLAFAXINE HCL 37.5 MG TAB PO SCH (08:46)
[2023-02-01] MEDS: dexAMETHasone 8 MG in SYRINGE 0 ML IV SCH (08:47)
[2023-02-01] MEDS ORDERED: POLYETHYLENE (MIRALAX) 17 GM PACK PO PRN (09:36)
--- NOTE | 2023-02-01 11:01 | Hospitalist Progress Note ---
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 She is being managed for the following: Thoracic spine hematoma Recent outpatient spinal cord stimulator placement for chronic back pain (01/18) Status post evacuation/stimulator removal 01/20 Acute blood loss anemia: Resolved Patient is a status post evacuation of thoracic hematoma on 01/20 following recent outpatient spinal cord stimulator placement for chronic back pain on 01/18. MRI of thoracic/lumbar spine on 01/27/23 was discussed with Ortho. Did show evidence of previous decompression and hematoma in operative bed, ?spinal cord edema at T7 With clinical improvement, Ortho does not recommend surgery at this time Continue PT/OT Pain control CM working on placement Hypertension- Was started on amlodipine. Continue to monitor, BP improving 151/79, likely pain contributing as well recommend continued close monitor of BP while at rehab with uptitration of bp meds if necessary Hypothyroidism - Continue levothyroxine. DVT prophylaxis. SCDs Full code Dispo: pt approved for rehab and plan for D/C today Pt was seen and examined in collaboration with Dr. Duckworth, please see addendum Admission and Anticipated Discharge Date Admission Date: January 20, 2023 Supervising Physician Co-Signing Physician Notes Patient is seen and examined on day of discharge. Denies any significant back pain. Reports chronic bilateral feet pain. Was having PT OT during my evaluation. Patient denies any chest pain, shortness of breath, dizziness, nausea, vomiting, abdominal pain. Plan to be discharged to rehab facility today. On exam patient is thin, frail, no apparent distress, normocephalic atraumatic, EOMI, normal breath sounds, clear to auscultation, S1-S2, no murmur, no pedal edema, abdomen soft, nontender, normal bowel sounds, lumbar region--surgical site in dressing, alert, awake, oriented, grossly no focal deficits. Patient is being managed for thoracic spine hematoma secondary to spinal cord stimulator placement. S/P stimulator removal. Acute blood loss anemia. Appreciate orthopedics input. Plan for rehab placement. Continue PT OT, fall precautions. Monitor CBC. Continue amlodipine for blood pressure management. I personally reviewed the record. Patient is interviewed and examined at bedside. Patient's care is coordinated with Amanda Cardona PA-C. Please refer to the documentation above for details of patient's presentation and for discussion of other issues. Subjective Patient was seen and examined in room 308. Follow-up with thoracic hematoma. She offers no acute concerns this morning. She denies fever, chills, sweats, lightheadedness, dizziness, chest pain, shortness breath, nausea or vomiting. She continues to have spasm and restless legs. Plan is to go to rehab. Review of Systems Review of Systems: All systems reviewed & are unremarkable except as noted in HPI & below Physical Exam Physical Exam: Gen: WD/WN, NAD, A&O x3 HEENT: Normocephalic, atraumatic, conjunctivae moist, sclerae anicteric, mucous membranes moist. Lung: Clear to Auscultation bilaterally, no wheezes/rales/rhonchi Heart: Regular rate, regular rhythm, no murmurs, rubs, or gallops Abdomen: Soft, NT, ND +BS x 4 Extremities: No edema, but poor ROM to lower ext strength 1/5 b/l, decreased sensation ble, lumbar dressing cdi Skin: Warm, no rash, negative turgor. Results & Data Results & Data Vital Signs (Past 12 Hours) Vital Signs Temp Pulse Resp BP Pulse Ox O2 Del Method 02/01/23 07:28 36.6 C 57 L 16 151/79 H 98 Room Air Medications Administered Current Inpatient Medications Acetaminophen (Acetaminophen 500 Mg Tab) 1,000 mg PO Q8H PRN PRN Reason: MILD Pain Scale 1,2,3 & Pre PT Stop: 02/19/23 22:55 Last Admin: 02/01/23 08:50 Dose: 1,000 mg Al Hydrox/Mg Hydrox/Simethicone (Aluminum/Magnesium Susp 30 Ml Udc) 30 ml PO Q6H PRN PRN Reason: Dyspepsia Stop: 02/19/23 22:55 Amlodipine Besylate (Amlodipine Besylate 5 Mg Tab) 5 mg PO QAM JUAN MIGUEL Stop: 02/25/23 08:59 Last Admin: 02/01/23 08:46 Dose: 5 mg Baclofen (Baclofen 10 Mg Tab) 5 mg PO HS PRN PRN Reason: spasm Stop: 02/21/23 20:59 Last Admin: 01/31/23 20:58 Dose: 5 mg Bisacodyl (Bisacodyl 10 Mg Supp) 10 mg MN DAILY PRN PRN Reason: Constipation Stop: 02/19/23 22:55 Last Admin: 01/25/23 12:39 Dose: 10 mg Clonazepam (Clonazepam 1 Mg Tab) 1 mg PO BID PRN PRN Reason: Anxiety Stop: 02/19/23 22:55 Last Admin: 01/31/23 18:41 Dose: 1 mg Famotidine (Famotidine 20 Mg Tab) 20 mg PO Q12H PRN PRN Reason: Dyspepsia Stop: 02/19/23 22:55 Hydromorphone HCl (Hydromorphone Inj 0.5 Mg/0.5 Ml Syr) 0.25 mg IV Q3H PRN PRN Reason: MODERATE Pain (Scale 4,5,6) & Pre PT Stop: 02/03/23 22:55 Hydroxyzine HCl (Hydroxyzine Hcl 25 Mg Tab) 25 mg PO Q8H PRN PRN Reason: Anxiety Stop: 02/19/23 22:55 Promethazine HCl 12.5 mg/ (Sodium Chloride) 50.5 mls @ 202 mls/hr IV Q6H PRN PRN Reason: Nausea &/or Vomiting Stop: 02/19/23 22:55 Dexamethasone 8 mg/ Syringe 2 mls @ 1 mls/min IV DAILY JUAN MIGUEL Stop: 03/02/23 08:59 Last Admin: 02/01/23 08:47 Dose: 1 mls/min Influenza Virus Vaccine Quadrival (Do Not Administer Flu Vaccine) 1 each N/A PRN PRN PRN Reason: Notification Stop: 02/19/23 22:55 Levothyroxine Sodium (Levothyroxine Sodium 112 Mcg Tablet) 112 mcg PO DAILYBB JUAN MIGUEL Stop: 02/22/23 08:59 Last Admin: 02/01/23 05:27 Dose: 112 mcg Magnesium Hydroxide (Magnesium Hydroxide Susp 30 Ml Udc) 30 ml PO Q24H PRN PRN Reason: Constipation Stop: 02/19/23 22:55 Last Admin: 01/27/23 16:32 Dose: 30 ml Metoclopramide HCl (Metoclopramide Hcl Inj 5 Mg/Ml 2 Ml Vial) 10 mg IV Q6H PRN PRN Reason: Nausea &/or Vomiting Stop: 02/19/23 22:55 Metoprolol Tartrate (Metoprolol Tartrate 25 Mg Tab) 25 mg PO BID [facility] Stop: 02/20/23 08:59 Last Admin: 02/01/23 08:46 Dose: 25 mg Naloxone HCl (Naloxone Hcl 0.4 Mg/1 Ml Vial/Carp) 0.1 mg IV Q5M PRN PRN Reason: Oversedation/Resp depression Stop: 02/19/23 22:55 Olanzapine (Olanzapine 10 Mg/2.1 Ml Sdv) 2.5 mg IM Q4H PRN PRN Reason: Anxiety/Agitation Stop: 02/21/23 06:34 Ondansetron HCl (Ondansetron Inj 2 Mg/Ml 2 Ml Vial) 4 mg IV Q6H PRN PRN Reason: Nausea &/or Vomiting Stop: 02/19/23 22:55 Ondansetron HCl (Ondansetron 4 Mg Od Tab) 4 mg PO Q6H PRN PRN Reason: Nausea Stop: 02/19/23 22:55 Last Admin: 01/24/23 13:48 Dose: 4 mg Pneumococcal Polyvalent Vaccine (Do Not Administer Pneumococcal Vaccine) 1 each N/A PRN PRN PRN Reason: Notification Stop: 02/19/23 22:55 Polyethylene Glycol (Polyethylene (Miralax) 17 Gm Pack) 17 gm PO DAILY PRN PRN Reason: Constipation Stop: 03/03/23 09:35 Senna/Docusate Sodium (Docusate Sodium/Senna 50/8.6mg Tab) 2 tab PO HS JUAN MIGUEL Stop: 02/20/23 20:59 Last Admin: 01/31/23 20:58 Dose: 2 tab Sodium Biphosphate/Sodium Phosphate (Sod Phosphate/Sod Biphosphate Enema 132 Ml Btl) 132 ml MN ONE PRN PRN Reason: Constipation Stop: 02/19/23 22:55 Tramadol HCl (Tramadol Hcl 50 Mg Tablet) 50 - 100 mg PO Q4H PRN PRN Reason: Moderate-Severe pain & Pre PT Stop: 02/19/23 22:55 Last Admin: 02/01/23 05:27 Dose: 100 mg Trazodone HCl (Trazodone Hcl 100 Mg Tab) 100 mg PO HS JUANM IGUEL Stop: 02/20/23 20:59 Last Admin: 01/21/23 21:08 Dose: 100 mg Venlafaxine HCl (Venlafaxine Hcl 37.5 Mg Tab) 37.5 mg PO DAILY [facility] Stop: 02/22/23 08:59 Last Admin: 02/01/23 08:46 Dose: 37.5 mg
--- NOTE | 2023-02-01 12:51 | Discharge Summary ---
Date of Service February 01, 2023 Admission HPI Per Admitting Provider This is a 67-year-old female status post spinal cord stimulator placement 2 days ago.. She was discharged home. States after getting home she had a few falls 1 directly on her back. She felt progressive weakness. She was being managed by her elderly aunt at that time. She notify our office this morning of her decline in status we request that she go to the emergency room immediately unfortunately she went to the [place] emergency room instead of the [place] emergency room. We did have her transferred over as soon as possible. This point she states she has thoracic back pain denies any lower extremity pain. She feels her sensation is markedly diminished lower extremities. Principal Diagnosis Postop hematoma of the thoracic spine with thoracic cord injury Discharge Data Allergies Allergy/AdvReac Type Severity Reaction Status Date / Time pregabalin [From Lyrica] Allergy headaches Verified 08/05/21 14:29 gabapentin AdvReac Unknown Verified 08/05/21 14:29 Consultations 01/20/23 22:56 Consult Hospitalist Routine Procedures Performed Operation Date: 01/20/23 21:00 Actual Procedures p Evacuation of Thoracic Hematoma, Removal of spinal stimulator(Not Applicable) - Brandon Berg DO Ordered Studies 01/20/23 20:30 FL lumbar spine 2-3V Routine 01/27/23 16:17 MRI Lumbar Spine [MR lumbar spine wo/w con] Urgent MRI Thoracic [MR thoracic spine wo/w con] Urgent Hospital Course (1) Injury of thoracic spinal cord: Patient was transferred from [place] ER with marked decline in neurologic status. Upon arrival determined complete paralysis of the bilateral lower extremities from the mid thoracic region distal. She underwent emergent exploration and evacuation of the hematoma sheet obtained in the mid thoracic level at T8-T9. Postoperatively she had a slow but steady course of improvement with increase in sensation and motor function progressing on the right lower extremity greater than the left lower extremity. She is ultimately accepted to rehab. Upon discharge she had evidence of right hip flexion moderate quadricep activity and plantarflexion dorsiflexion on the right. On the left there was just the beginnings of plantarflexion and dorsiflexion. Sensory was symmetric and intact. Total Time Total Time Spent Total Time Spent (In Minutes): 20 minutes Discharge Plan Discharge Items Patient Disposition: Transfer [facility] Living Fac Reason For Visit: NO FEELING IN LEGS POST OP Discharge Diagnosis: Thoracic cord injury Activity: As commented below Non-emergency contact: Primary Care Provider Call non-emergency contact if: you have any medication questions Follow-up/Referrals: Vic Herron PA-C [Primary Care Provider] - Diet: Regular Addtl Attending Provider Instructions: ACTIVITY RECOMMENDATIONS: SELF CARE INSTRUCTIONS AFTER A LAMINECTOMY 1. No prolonged sitting (less than 30 minutes for the first 3 weeks after surgery). 2. No bending, lifting more than 5 pounds, or twisting (roll like a log when turning in bed). 3. You may shower 3 days after surgery if no drainage from wound. Thoroughly dry wound. Do not soak in the tub. 4. Please walk as much as you can for exercise. Gradually increase the distance that you walk as your endurance increases. 5. You may drive in 7-10 days if you are comfortable and no longer requiring pain medications. SPECIAL CARE INSTRUCTIONS: VERY IMPORTANT TO READ AND REVIEW A. Your surgical incision has been closed with a cosmetic suture under the skin that will dissolve in about 6 weeks. In 14 days, you can use a pair of clean scissors and cut the suture that is left outside of the skin at the ends of your incision. B. Complications are uncommon, but please contact us if you have any signs or symptoms of: 1. wound infection (fever higher than 102.5 degrees F, redness, separation of wound, drainage, or increasing pain from the incision) 2. blood clots in legs (pain, swelling, redness and warmth in legs) 3. urinary tract infection (fever higher than 102.5 degrees, burning upon urination or increased frequency of urination) 4. nerve problems (inability to walk on your toes or heels, numbness, loss of bowel or bladder control) 5. any other symptoms that concern you. C. Please call the office at if you have any concerns or questions about your operation or recovery. MANAGING PAIN AFTER SPINAL SURGERY 1. Narcotic medication is intended for short-term use and will be provided for surgical pain. Surgical pain usually lasts for a period of 4-6 weeks. Narcotic medication includes Percocet, Vicodin, Darvocet, Tylenol #3 or Lortab. 2. Longer-term pain is more appropriately treated with non-narcotic medication such as Tylenol ES. 3. Muscle spasm is not appropriately treated with narcotics. Muscle relaxers such as Soma, Flexeril or Skelaxin can be used along with Tylenol ES. 4. Remember that we all live with some "aches and pains". This is not unusual or uncommon after an injury or as we get older. 5. We will provide appropriate medication within the normal guidelines of their prescribed use. We will also be very cautious and aware of potential abuse and extended duration of patients' medication needs. 6. Please allow 2-3 days to process refills. Prescriptions will not be mailed but must be picked up at the office. FOLLOW UP VISIT: Keep your scheduled follow-up appointment. Any questions, please call the office at . Pending Studies at Discharge: No Stand-Alone Forms: My [facility] Skilled Items Patient informed of condition?: Yes DNR: No Discharge Level of Care: Acute rehab Communicable Disease: No Discharge Prognosis: Improving Lines: None Urinary Catheter: Yes Medications and DC Order Prescriptions: New tramadol 50 mg tablet 50 mg PO Q6H PRN (Reason: pain, moderate) Qty: 30 0RF Continued metoprolol tartrate 25 mg tablet 25 mg PO BID trazodone 100 mg tablet 200 mg PO HS clonazepam 2 mg tablet 2 mg PO BID PRN (Reason: Anxiety) tramadol 50 mg tablet 50 mg PO Q6H PRN (Reason: Pain) baclofen 10 mg tablet 10 mg PO HS venlafaxine 37.5 mg tablet 37.5 mg PO DAILY levothyroxine 112 mcg tablet 112 mcg PO DAILY Discharge Orders: Discharge Order (Routine); Ordered 02/01/23 Ordered By: Brandon Lyons/Other Patient Handouts: DVT Post Op Prevention Admission Data Admit Date/Time: 01/20/23 21:34 Attending Provider: Brandon Berg Admit Provider: Brandon Berg Primary Care Provider: Vic Herron Other Providers: Shagufta Grayson ; Coral Koch ; Becca Jimenez ; Amanda Cardona ; Clayton Duckworth Other Interventions: Discharge Summary Assessment (RN) Last Done: 02/01/23 10:50
== END 2023-02-01 16:26 | DRG 907 ==
LOC: ED 19:55 → OR 20:10 → 3E 21:34